=== PATIENT | male | born 1990 | race Two or more races ===

== ENCOUNTER 2019-01-16 10:49 | Inpatient (IN) | payer MEDICAID ==
[~2019-01-16] VITALS: Ht 170.2 cm; Wt 53.8 kg
[2019-01-16] VITALS (12 sets, daily range): BP systolic 87–167; BP diastolic 31–87
[2019-01-16] MEDS ORDERED: NOVOLIN R100 UNIT/1 SUBQ (10:53)
--- NOTE | 2019-01-16 10:55 | NUR ---
ED Nurse Note: PT BROUGHT IN BY R29 FROM HOME. AOX4. PT C/O WEAKNESS X THIS AM. PT HAS HX OF IDDM. B, DR GUERRERO NOTIFIED. PT STATES HE TOOK HIS INSULIN LAST NIGHT BUT NOT THIS MORNING. PT STATES HE HAD NAUSEA AND MULTIPLE OF VOMITING X THIS AM. PT STILL C/O NAUSEA AT THIS TIME BUT NO ACTIVE VOMITING. PT INDEPENDENTLY AMBULATED TO RESTROOM WITH STEADY GAIT. PT PRESENTS WITH 18G IV TO LEFT AC INSERTED BY R29.
[2019-01-16 11:32] LABS: BASOPHILS % (AUTO) 0.6 % (0.0-2.0); HEMATOCRIT 43.4 % (42.0-52.0); HEMOGLOBIN 14.2 G/DL (14.2-18.0); LYMPHOCYTES % (AUTO) 14.2 % (20.0-45.0); MEAN CORPUSCULAR VOLUME 93 FL (80-99); MONOCYTES % (AUTO) 3.6 % (1.0-10.0); NEUTROPHILS % (AUTO) 81.5 % (45.0-75.0); PLATELET COUNT 217 K/UL (150-450); RED CELL DISTRIBUTION WIDTH 11.9 % (11.6-14.8); WHITE BLOOD COUNT 9.7 K/UL (4.8-10.8)
[2019-01-16 11:38] LABS: APPEARANCE,URINE CLEAR; BILIRUBIN, URINE NEGATIVE (NEGATIVE); COLOR,URINE PALE YELLOW; GLUCOSE, URINE (UA) 4+ (NEGATIVE); KETONES,URINE 4+ (NEGATIVE); LEUKOCYTE ESTERASE ,URINE NEGATIVE (NEGATIVE); NITRITE,URINE NEGATIVE (NEGATIVE); PH,URINE 6 (4.5-8.0); PROTEIN,URINE 1+ (NEGATIVE); UROBILINOGEN,URINE NORMAL MG/DL (0.0-1.0)
[2019-01-16 11:44] LABS: ALANINE AMINOTRANSFERASE 33 U/L (12-78); ALBUMIN 3.9 G/DL (3.4-5.0); ALBUMIN/GLOBULIN RATIO 1.1 (1.0-2.7); ALKALINE PHOSPHATASE 92 U/L (46-116); ANION GAP 28 mmol/L (5-15); ASPARTATE AMINO TRANSFERASE 21 U/L (15-37); BILIRUBIN,TOTAL 0.9 MG/DL (0.2-1.0); BLOOD UREA NITROGEN 19 mg/dL (7-18); CARBON DIOXIDE 11 MMOL/L (21-32); CHLORIDE 99 MMOL/L (98-107); CREATININE 1.3 MG/DL (0.55-1.30); POTASSIUM 4.8 MMOL/L (3.5-5.1); SODIUM 138 MMOL/L (136-145)
--- NOTE | 2019-01-16 12:56 | NUR ---
ED Nurse Note: PHARMACY CALLED FOR INSULIN DRIP. PHARMACY STILL WORKING ON IT. WILL DELIVER WHEN READY.
--- NOTE | 2019-01-16 14:54 | Emergency Room Report ---
History of Present Illness General Chief Complaint: Nausea Source: Patient, EMS Present Illness HPI This patient complains of one day of nausea, vomiting and abdominal pain. He has a history of diabetes. Denies recent illness. Denies fever or chills. He states that he has been using his insulin. He has no other complaints. Allergies: Coded Allergies: No Known Allergies (Unverified , 01/16/19) Patient History Past Medical History: see triage record, DM, HTN Social History: Denies: smoking, alcohol use, drug use Reviewed Nursing Documentation: PMH: Agreed; PSxH: Agreed Nursing Documentation-PMH Past Medical History: No History, Except For Hx Cardiac Problems: Yes - high cholesterol Hx Hypertension: Yes Hx Diabetes: Yes Review of Systems All Other Systems: negative except mentioned in HPI Physical Exam Vital Signs Date Time Temp Pulse Resp B/P (MAP) Pulse Ox O2 Delivery O2 Flow Rate FiO2 01/16/19 10:44 98.1 124 22 141/87 (105) 99 Room Air Sp02 EP Interpretation: reviewed, normal General Appearance: no apparent distress, alert, GCS 15, non-toxic Head: normocephalic, atraumatic Eyes: bilateral eye normal inspection, bilateral eye PERRL ENT: hearing grossly normal, normal pharynx, no angioedema, normal voice Neck: full range of motion, supple/symm/no masses Respiratory: chest non-tender, lungs clear, normal breath sounds, no respiratory distress, no retraction, no accessory muscle use, speaking full sentences Cardiovascular #1: no edema, tachycardia Gastrointestinal: normal bowel sounds, soft, non-distended, no guarding, no rebound, tenderness - Diffusely TTP Rectal: deferred Musculoskeletal: back normal, gait/station normal, normal range of motion, non- tender Neurologic: alert, oriented x3, responsive, motor strength/tone normal, sensory intact, speech normal Psychiatric: judgement/insight normal, memory normal, mood/affect normal, no suicidal/homicidal ideation Skin: normal color, no rash, warm/dry, well hydrated Medical Decision Making Diagnostic Impression: Primary Impression: DKA (diabetic ketoacidoses) ER Course This patient presents with DKA. He was given aggressive IV fluid resuscitation and started on an insulin drip. He was given nausea control. I did not identify an infectious etiology. I suspect medication and diet noncompliance. The patient is admitted to the ICU. This patient is critically ill. This patient required complex medical decision- making, aggressive intervention, extensive laboratory workup and monitoring. Critical care time: 40 minutes. Laboratory Tests Test 01/16/19 11:07 White Blood Count 9.7 K/UL (4.8-10.8) Red Blood Count 4.70 M/UL (4.70-6.10) Hemoglobin 14.2 G/DL (14.2-18.0) Hematocrit 43.4 % (42.0-52.0) Mean Corpuscular Volume 93 FL (80-99) Mean Corpuscular Hemoglobin 30.3 PG (27.0-31.0) Mean Corpuscular Hemoglobin Concent 32.7 G/DL (32.0-36.0) Red Cell Distribution Width 11.9 % (11.6-14.8) Platelet Count 217 K/UL (150-450) Mean Platelet Volume 9.6 FL (6.5-10.1) Neutrophils (%) (Auto) 81.5 % (45.0-75.0) H Lymphocytes (%) (Auto) 14.2 % (20.0-45.0) L Monocytes (%) (Auto) 3.6 % (1.0-10.0) Eosinophils (%) (Auto) 0.0 % (0.0-3.0) Basophils (%) (Auto) 0.6 % (0.0-2.0) Urine Color Pale yellow Urine Appearance Clear Urine pH 6 (4.5-8.0) Urine Specific [place] 1.020 (1.005-1.035) Urine Protein 1+ (NEGATIVE) H Urine Glucose (UA) 4+ (NEGATIVE) H Urine Ketones 4+ (NEGATIVE) H Urine Blood 2+ (NEGATIVE) H Urine Nitrite Negative (NEGATIVE) Urine Bilirubin Negative (NEGATIVE) Urine Urobilinogen Normal MG/DL (0.0-1.0) Urine Leukocyte Esterase Negative (NEGATIVE) Urine RBC 0-2 /HPF (0 - 0) H Urine WBC 0-2 /HPF (0 - 0) Urine Squamous Epithelial Cells Occasional /LPF Urine Bacteria Occasional /HPF (NONE) Sodium Level 138 MMOL/L (136-145) Potassium Level 4.8 MMOL/L (3.5-5.1) Chloride Level 99 MMOL/L (98-107) Carbon Dioxide Level 11 MMOL/L (21-32) L Anion Gap 28 mmol/L (5-15) H Blood Urea Nitrogen 19 mg/dL (7-18) H Creatinine 1.3 MG/DL (0.55-1.30) Estimate Glomerular Filtration Rate > 60 mL/min (>60) Glucose Level 555 MG/DL (74-106) *H Calcium Level 9.0 MG/DL (8.5-10.1) Magnesium Level 1.8 MG/DL (1.8-2.4) Total Bilirubin 0.9 MG/DL (0.2-1.0) Aspartate Amino Transferase (AST) 21 U/L (15-37) Alanine Aminotransferase (ALT) 33 U/L (12-78) Alkaline Phosphatase 92 U/L (46-116) Total Protein 7.4 G/DL (6.4-8.2) Albumin 3.9 G/DL (3.4-5.0) Globulin 3.5 g/dL Albumin/Globulin Ratio 1.1 (1.0-2.7) Acetone Level Positive-moderate (NEGATIVE) EKG Diagnostic Results Rate: tachycardiac Rhythm: other - S.tachycardia ST Segments: no acute changes Rhythm Strip Diag. Results EP Interpretation: yes Rate: 120's Rhythm: no PVC's, no ectopy, other - S.tachycardia Last Vital Signs Date Time Temp Pulse Resp B/P (MAP) Pulse Ox O2 Delivery O2 Flow Rate FiO2 01/16/19 13:51 124 11 151/58 100 Room Air 01/16/19 12:50 98.0 Disposition: ADMITTED INPATIENT Condition: Critical Referrals: [facility],REFERRING (PCP) Kerline Young DO Jan 16, 2019 14:54
--- NOTE | 2019-01-16 16:30 | NUR ---
Note malia in EDM - 01/16/19 at 1649 by CAROLYN ED Nurse Note: DR. CAZARES NOTIFIED OF LAST BG OF 254. PER DR CAZARES, STOP INSULIN DRIP UNTIL FURTHER NOTICE.
--- NOTE | 2019-01-16 16:40 | NUR ---
ED Nurse Note: ICU CALLED FOR PT TRANSFER. REPORT GIVEN TO VIET GOMES. PER VIET GOMES, ROOM IS STILL NOT READY. RN WILL CALL BACK ONCE ROOM IS READY FOR PT.
--- NOTE | 2019-01-16 16:45 | NUR ---
ED Nurse Note: PER DR CAZARES, STOP INSULIN DRIP UNTIL FURTHER NOTICE.
--- NOTE | 2019-01-16 17:30 | NUR ---
ED Nurse Note: ICU CALLED BACK STATING BED IS NOW AVAILABLE. PT TAKEN UP TO ICU VIA GURNEY ON HOUSEKEEPING/LAUNDRY WITH ALL BELONGINGS ACCOMPANIED BY PRIMARY RN AND EMT. VSS.
[2019-01-16] MEDS ORDERED: Insulin Human Regular 100units/ml 3ml IV PRN ×2 (18:00)
[2019-01-16] MEDS ORDERED: DiphenhydrAMINE 50mg/ml Inj IVP PRN (18:15)
--- NOTE | 2019-01-16 18:30 | NUR ---
NURSE NOTES: Report received from Toni LLANOS. Pt alert and oriented x4, able to make needs known. Pt connected to hydrocrane operator, St 100s. Pt on RA 100% oxygen saturation, denies SOB. Pt voiding per urinal. Initial accucheck was 185. Safety measures in place with bed locked in lowest position, side rails x3 up and bed alarm on. Will continue to monitor and continue plan of care.
[2019-01-16] MEDS: Hydromorphone 0.5mg/0.5ml inj IVP PRN (18:40)
--- NOTE | 2019-01-16 19:46 | NUR ---
HAND-OFF: Report given to Maria Elena LLANOS.
[2019-01-16 20:22] LABS: ANION GAP 22 mmol/L (5-15); BLOOD UREA NITROGEN 15 mg/dL (7-18); CALCIUM 7.6 MG/DL (8.5-10.1); CARBON DIOXIDE 12 MMOL/L (21-32); CHLORIDE 110 MMOL/L (98-107); CREATININE 1.3 MG/DL (0.55-1.30); POTASSIUM 4.1 MMOL/L (3.5-5.1); SODIUM 143 MMOL/L (136-145)
[2019-01-16 20:26] LABS: PHOSPHORUS 3.5 MG/DL (2.5-4.9)
--- NOTE | 2019-01-16 20:27 | Pulmonolgy Critical Care Note ---
Critical Care - Asmt/Plan Assessment/Plan: Pulmonary CCM Note HPI Patient is a 28 year old man with history of IDDM, HL and HTN admitted after complaining of one day of nausea, vomiting and abdominal pain. Denies recent illness. Denies fever or chills. No cough. He states that he has been using his insulin. He has no other complaints. Allergies: No Known Allergies Past Medical History: IDDM, HTN, HL Social History: Denies: smoking, alcohol use, drug use All Other Systems: negative except mentioned in HPI Physical Exam Vital Signs Noted Date Time Temp Pulse Resp B/P (MAP) Pulse Ox O2 Delivery O2 Flow Rate FiO2 01/16/19 10:44 98.1 124 22 141/87 (105) 99 Room Air General Appearance: no apparent distress, alert, GCS 15, non-toxic, dryish mm, smells of ketones Head: normocephalic, atraumatic Eyes: bilateral eye normal inspection, bilateral eye PERRL ENT: hearing grossly normal, normal pharynx, no angioedema, normal voice Neck: full range of motion, supple/symm/no masses Respiratory: chest non-tender, lungs clear, normal breath sounds, no respiratory distress, no retraction, no accessory muscle use, speaking full sentences Cardiovascular: HS1, HS2 normal, RRR, no edema, tachycardia Gastrointestinal: normal bowel sounds, soft, non-distended, no guarding, no rebound, tenderness - mild tenderness Rectal: deferred Musculoskeletal: back normal, gait/station normal, normal range of motion, non- tender Neurologic: alert, oriented x3, responsive, motor strength/tone normal, sensory intact, speech normal Skin: normal color, no rash, warm/dry, well hydrated Impression: Primary Impression: Diabetic ketoacidoses, h/o IDDM Hypertension Hyperlipidemia Plan IV Fluids Insulin gtt PPX Monitor labs Supplement electrolytes PRN CXR PRN O2 Protonix Lipase Laboratory Tests Test 01/16/19 11:07 White Blood Count 9.7 K/UL (4.8-10.8) Red Blood Count 4.70 M/UL (4.70-6.10) Hemoglobin 14.2 G/DL (14.2-18.0) Hematocrit 43.4 % (42.0-52.0) Mean Corpuscular Volume 93 FL (80-99) Mean Corpuscular Hemoglobin 30.3 PG (27.0-31.0) Mean Corpuscular Hemoglobin Concent 32.7 G/DL (32.0-36.0) Red Cell Distribution Width 11.9 % (11.6-14.8) Platelet Count 217 K/UL (150-450) Mean Platelet Volume 9.6 FL (6.5-10.1) Neutrophils (%) (Auto) 81.5 % (45.0-75.0) H Lymphocytes (%) (Auto) 14.2 % (20.0-45.0) L Monocytes (%) (Auto) 3.6 % (1.0-10.0) Eosinophils (%) (Auto) 0.0 % (0.0-3.0) Basophils (%) (Auto) 0.6 % (0.0-2.0) Urine Color Pale yellow Urine Appearance Clear Urine pH 6 (4.5-8.0) Urine Specific [place] 1.020 (1.005-1.035) Urine Protein 1+ (NEGATIVE) H Urine Glucose (UA) 4+ (NEGATIVE) H Urine Ketones 4+ (NEGATIVE) H Urine Blood 2+ (NEGATIVE) H Urine Nitrite Negative (NEGATIVE) Urine Bilirubin Negative (NEGATIVE) Urine Urobilinogen Normal MG/DL (0.0-1.0) Urine Leukocyte Esterase Negative (NEGATIVE) Urine RBC 0-2 /HPF (0 - 0) H Urine WBC 0-2 /HPF (0 - 0) Urine Squamous Epithelial Cells Occasional /LPF Urine Bacteria Occasional /HPF (NONE) Sodium Level 138 MMOL/L (136-145) Potassium Level 4.8 MMOL/L (3.5-5.1) Chloride Level 99 MMOL/L (98-107) Carbon Dioxide Level 11 MMOL/L (21-32) L Anion Gap 28 mmol/L (5-15) H Blood Urea Nitrogen 19 mg/dL (7-18) H Creatinine 1.3 MG/DL (0.55-1.30) Estimate Glomerular Filtration Rate > 60 mL/min (>60) Glucose Level 555 MG/DL (74-106) *H Calcium Level 9.0 MG/DL (8.5-10.1) Magnesium Level 1.8 MG/DL (1.8-2.4) Total Bilirubin 0.9 MG/DL (0.2-1.0) Aspartate Amino Transferase (AST) 21 U/L (15-37) Alanine Aminotransferase (ALT) 33 U/L (12-78) Alkaline Phosphatase 92 U/L (46-116) Total Protein 7.4 G/DL (6.4-8.2) Albumin 3.9 G/DL (3.4-5.0) Globulin 3.5 g/dL Albumin/Globulin Ratio 1.1 (1.0-2.7) Acetone Level Positive-moderate (NEGATIVE) EKG: Rate: tachycardiac Rhythm: other - S.tachycardia ST Segments: no acute changes Renal: increase IV fluid Endocrine: monitor blood sugar Prophylaxis: Protonix, Heparin Disposition: keep in ICU Time Spent (Minutes): 50 Critical Care - Objective Last 24 Hour Vital Signs Date Time Temp Pulse Resp B/P (MAP) Pulse Ox O2 Delivery O2 Flow Rate FiO2 01/16/19 19:00 106 16 96/37 (56) 98 01/16/19 18:02 Room Air 01/16/19 18:02 97.7 01/16/19 18:00 97.7 115 16 146/70 (95) 100 01/16/19 17:31 98.2 113 16 145/65 100 Room Air 01/16/19 15:47 122 15 167/87 100 Room Air 01/16/19 13:51 124 11 151/58 100 Room Air 01/16/19 12:50 98.0 122 15 121/58 100 Room Air 01/16/19 12:49 122 15 Room Air 01/16/19 11:13 97.9 108 19 137/66 100 Room Air 01/16/19 10:44 98.1 124 22 141/87 (105) 99 Room Air Accucheck: 208 Critical Care - Subjective ROS Limited/Unobtainable: No Condition: critical, improving Sputum Amount: None Silverio Bhatt MD Jan 16, 2019 20:27
--- NOTE | 2019-01-16 20:29 | NUR ---
CASE MANAGEMENT: INITIAL REVIEW 01/16/2019 28 YO M TINAA FROM HOME CC: GEN WEAKNESS. N/V. ABD PAIN. PMHx: HLD. HTN. DM. SI:DKA. T 98.1 HR 124 RR 22 B/P 141/87 SATS 99% ON RA CO2 11 BUN 19 GLU 555 ACETONE (POS-MOD) IS: NS BOLUS X2 ZOFRAN IV X1 100 UNITS OF INSULIN HUMAN REGULAR PATIENT ADMITTED TO ICU 01/16/2019 @ 1453 DCP: PATIENT TO BE DISCHARGED TO HOME ONCE MEDICALLY CLEARED. PLAN OF CARE: IVF GLYCEMIC CONTROL AND MONITORING
[2019-01-16] MEDS: Insulin Rate Change 1 Each MISC PRN ×4 (20:33→23:29)
[2019-01-16] MEDS: Heparin 5000 units/ml inj SUBQ SCH (21:13)
[2019-01-16] MEDS: D5NS 1,000 ML IV SCH (23:45)
[2019-01-17] VITALS (22 sets, daily range): BP systolic 113–179; BP diastolic 46–99
--- NOTE | 2019-01-17 | NUR ---
NURSE NOTES: LEANA IN WITH ORDER MADE IV CHANGE TO D5/NS AT 150 PT C/O N/V AND PAIN MEDICATED ORDER
[2019-01-17] MEDS: Sodium Chloride 550 ML IV SCH ×2 (00:15→01:57)
[2019-01-17] MEDS: Insulin Rate Change 1 Each MISC PRN ×8 (00:26→15:27)
[2019-01-17 00:40] LABS: ANION GAP 16 mmol/L (5-15); BLOOD UREA NITROGEN 15 mg/dL (7-18); CALCIUM 8.1 MG/DL (8.5-10.1); CARBON DIOXIDE 16 MMOL/L (21-32); CHLORIDE 114 MMOL/L (98-107); CREATININE 1.3 MG/DL (0.55-1.30); POTASSIUM 3.8 MMOL/L (3.5-5.1); SODIUM 146 MMOL/L (136-145)
[2019-01-17] MEDS: Hydromorphone 0.5mg/0.5ml inj IVP PRN ×5 (00:44→21:02)
[2019-01-17 01:12] LABS: PHOSPHORUS 2.7 MG/DL (2.5-4.9)
--- NOTE | 2019-01-17 02:00 | NUR ---
NURSE NOTES: complete bed bath oral care and back care
--- NOTE | 2019-01-17 02:00 | NUR ---
NURSE NOTES: BS 190 INSULIN DRIP CHANGE TO ALG 3 AT 5.8 UNIT /HR
[2019-01-17] MEDS ORDERED: Insulin Human Regular 100units/ml 3ml IV PRN ×2 (02:45)
--- NOTE | 2019-01-17 03:46 | NUR ---
NURSE NOTES: [facility] called x2 for a new label for insulin drip, algorithm 3.it took an hour to have the label printed out and obtained from the nursing supervisor pipe finishing, when scanned, it says"dose exceeded"because it is "ml/hr" instead of "u/hr", called [facility] again by Alcira Barbour but the pharmacist (Kristian) said she'll find somebody who knows how to change it.
--- NOTE | 2019-01-17 04:03 | NUR ---
NURSE NOTES: estevan(pharmacist) from [facility] called and said that she's able to change the insulin drip to units/hr and will be printing out another new label
[2019-01-17] MEDS: D5NS 1,000 ML IV SCH ×2 (06:15→13:06)
[2019-01-17 06:41] LABS: ANION GAP 14 mmol/L (5-15); BLOOD UREA NITROGEN 12 mg/dL (7-18); CALCIUM 8.3 MG/DL (8.5-10.1); CARBON DIOXIDE 18 MMOL/L (21-32); CHLORIDE 113 MMOL/L (98-107); CREATININE 1.2 MG/DL (0.55-1.30); POTASSIUM 3.5 MMOL/L (3.5-5.1); SODIUM 145 MMOL/L (136-145)
[2019-01-17 07:33] LABS: CHOLESTEROL 165 MG/DL (< 200); HDL CHOLESTEROL 29 MG/DL (40-60); TRIGLYCERIDES 118 MG/DL (30-150)
--- NOTE | 2019-01-17 08:49 | NUR ---
NURSE NOTES: Received report from VIET Arredondo. Patient asleep. No acute distress/SOB noted. On room air. Patient denies any pain/discomfort at this time. Insulin drip running 2unit/hr via right FA 18G. D5NS 150ml/hr running via left AC 18G. Skin intact and clean. Started fall precaution. Call light place in easy reach. Will continue plan fo care. Addendum: 01/17/19 at 0920 by REMI RUSSELL RN Entry Time 0710
[2019-01-17] MEDS: Heparin 5000 units/ml inj SUBQ SCH ×2 (09:11→21:05)
--- NOTE | 2019-01-17 09:19 | Cardiology Progress Note ---
Assessment/Plan Assessment/Plan The patient is seen and examined, full consult note will be dictated. Objective Last 24 Hour Vital Signs Date Time Temp Pulse Resp B/P (MAP) Pulse Ox O2 Delivery O2 Flow Rate FiO2 01/17/19 07:00 90 12 113/68 (83) 98 01/17/19 06:00 90 12 113/68 (83) 98 01/17/19 05:00 90 12 113/68 (83) 98 01/17/19 04:00 98.0 95 16 113/55 (74) 98 01/17/19 04:00 Room Air 01/17/19 04:00 95 01/17/19 03:00 100 14 150/63 (92) 100 01/17/19 02:00 109 14 114/46 (68) 01/17/19 01:00 106 12 129/64 (85) 100 01/17/19 00:14 165/56 01/17/19 00:00 108 19 127/66 (86) 100 01/17/19 00:00 100 01/17/19 00:00 Room Air 01/16/19 23:00 96 12 121/71 (88) 100 01/16/19 22:00 93 12 114/68 (83) 100 01/16/19 21:00 96 11 119/64 (82) 100 01/16/19 20:00 97.8 107 12 98/39 (58) 98 01/16/19 20:00 Room Air 01/16/19 20:00 107 01/16/19 19:30 103 13 87/31 (49) 99 01/16/19 19:00 106 16 96/37 (56) 98 01/16/19 19:00 106 16 96/37 (56) 98 01/16/19 18:30 116 18 136/69 (91) 100 01/16/19 18:02 Room Air 01/16/19 18:02 97.7 01/16/19 18:00 97.7 115 16 146/70 (95) 100 01/16/19 18:00 112 13 146/70 (95) 100 01/16/19 17:31 98.2 113 16 145/65 100 Room Air 01/16/19 15:47 122 15 167/87 100 Room Air 01/16/19 13:51 124 11 151/58 100 Room Air 01/16/19 12:50 98.0 122 15 121/58 100 Room Air 01/16/19 12:49 122 15 Room Air 01/16/19 11:13 97.9 108 19 137/66 100 Room Air 01/16/19 10:44 98.1 124 22 141/87 (105) 99 Room Air Intake and Output 01/16/19 01/17/19 18:59 06:59 Intake Total 5008.89 ml 2184.1 ml Output Total 1900 ml Balance 5008.89 ml 284.1 ml Intake Oral 50 ml IV Total 5008.89 ml 2134.1 ml Output Urine Total 1900 ml # Voids 1 Laboratory Tests Test 01/16/19 11:07 01/16/19 19:35 01/16/19 23:50 01/17/19 00:00 White Blood Count 9.7 K/UL (4.8-10.8) Red Blood Count 4.70 M/UL (4.70-6.10) Hemoglobin 14.2 G/DL (14.2-18.0) Hematocrit 43.4 % (42.0-52.0) Mean Corpuscular Volume 93 FL (80-99) Mean Corpuscular Hemoglobin 30.3 PG (27.0-31.0) Mean Corpuscular Hemoglobin Concent 32.7 G/DL (32.0-36.0) Red Cell Distribution Width 11.9 % (11.6-14.8) Platelet Count 217 K/UL (150-450) Mean Platelet Volume 9.6 FL (6.5-10.1) Neutrophils (%) (Auto) 81.5 % (45.0-75.0) H Lymphocytes (%) (Auto) 14.2 % (20.0-45.0) L Monocytes (%) (Auto) 3.6 % (1.0-10.0) Eosinophils (%) (Auto) 0.0 % (0.0-3.0) Basophils (%) (Auto) 0.6 % (0.0-2.0) Urine Color Pale yellow Urine Appearance Clear Urine pH 6 (4.5-8.0) Urine Specific [place] 1.020 (1.005-1.035) Urine Protein 1+ (NEGATIVE) H Urine Glucose (UA) 4+ (NEGATIVE) H Urine Ketones 4+ (NEGATIVE) H Urine Blood 2+ (NEGATIVE) H Urine Nitrite Negative (NEGATIVE) Urine Bilirubin Negative (NEGATIVE) Urine Urobilinogen Normal MG/DL (0.0-1.0) Urine Leukocyte Esterase Negative (NEGATIVE) Urine RBC 0-2 /HPF (0 - 0) H Urine WBC 0-2 /HPF (0 - 0) Urine Squamous Epithelial Cells Occasional /LPF Urine Bacteria Occasional /HPF (NONE) Sodium Level 138 MMOL/L (136-145) 143 MMOL/L (136-145) 146 MMOL/L (136-145) H Potassium Level 4.8 MMOL/L (3.5-5.1) 4.1 MMOL/L (3.5-5.1) 3.8 MMOL/L (3.5-5.1) Chloride Level 99 MMOL/L (98-107) 110 MMOL/L (98-107) H 114 MMOL/L (98-107) H Carbon Dioxide Level 11 MMOL/L (21-32) L 12 MMOL/L (21-32) L 16 MMOL/L (21-32) L Anion Gap 28 mmol/L (5-15) H 22 mmol/L (5-15) H 16 mmol/L (5-15) H Blood Urea Nitrogen 19 mg/dL (7-18) H 15 mg/dL (7-18) 15 mg/dL (7-18) Creatinine 1.3 MG/DL (0.55-1.30) 1.3 MG/DL (0.55-1.30) 1.3 MG/DL (0.55-1.30) Estimat Glomerular Filtration Rate > 60 mL/min (>60) > 60 mL/min (>60) > 60 mL/min (>60) Glucose Level 555 MG/DL (74-106) *H 260 MG/DL (74-106) #H 129 MG/DL (74-106) #H Calcium Level 9.0 MG/DL (8.5-10.1) 7.6 MG/DL (8.5-10.1) L 8.1 MG/DL (8.5-10.1) L Magnesium Level 1.8 MG/DL (1.8-2.4) 1.6 MG/DL (1.8-2.4) L 1.8 MG/DL (1.8-2.4) Total Bilirubin 0.9 MG/DL (0.2-1.0) Aspartate Amino Transf (AST/SGOT) 21 U/L (15-37) Alanine Aminotransferase (ALT/SGPT) 33 U/L (12-78) Alkaline Phosphatase 92 U/L (46-116) Total Protein 7.4 G/DL (6.4-8.2) Albumin 3.9 G/DL (3.4-5.0) Globulin 3.5 g/dL Albumin/Globulin Ratio 1.1 (1.0-2.7) Acetone Level Positive-moderate (NEGATIVE) Phosphorus Level 3.5 MG/DL (2.5-4.9) 2.7 MG/DL (2.5-4.9) Lipase 70 U/L (73-393) L Test 01/17/19 06:00 Sodium Level 145 MMOL/L (136-145) Potassium Level 3.5 MMOL/L (3.5-5.1) Chloride Level 113 MMOL/L (98-107) H Carbon Dioxide Level 18 MMOL/L (21-32) L Anion Gap 14 mmol/L (5-15) Blood Urea Nitrogen 12 mg/dL (7-18) Creatinine 1.2 MG/DL (0.55-1.30) Estimat Glomerular Filtration Rate > 60 mL/min (>60) Glucose Level 153 MG/DL (74-106) H Calcium Level 8.3 MG/DL (8.5-10.1) L Phosphorus Level 2.0 MG/DL (2.5-4.9) L Magnesium Level 2.0 MG/DL (1.8-2.4) Triglycerides Level 118 MG/DL (30-150) Cholesterol Level 165 MG/DL (< 200) LDL Cholesterol 118 mg/dL (<100) H HDL Cholesterol 29 MG/DL (40-60) L Cholesterol/HDL Ratio 5.7 (3.3-4.4) H Drew Medel MD Jan 17, 2019 09:19
--- NOTE | 2019-01-17 09:23 | NUR ---
RADIOLOGY DEPT., CHEST X-RAY.-P.DYE
--- NOTE | 2019-01-17 10:00 | NUR ---
Social Service Note SW met with patient to assess patient's needs. Patient is alert, oriented and verbally responsive. Patient states Tuesday he came down with flu like symptoms. Over the course of several days patient states he wasn't taking his diabetic medications and checking his blood sugar as scheduled. Patient states he just wanted to sleep. Patient states then be began vomiting and cramping so his family called 911. Patient states he doesn't follow up with PCP on a regular basis however has medications and testing supplies at home. [facility] [address] [place] [address]. [id number], . Patient provided his emergency contact, sister Audrey Vergara [phone]. Family will provide transportation home upon discharge. Will monitor and be available as needed.
--- NOTE | 2019-01-17 11:36 | NUR ---
NURSE NOTES: PRN Dilaudid 0.5mg IVP given for abdominal pain. Sister at bedside. Pt is still on Insulin drip. Will continue to monitor.
--- NOTE | 2019-01-17 11:54 | Pulmonolgy Critical Care Note ---
Critical Care - Asmt/Plan Assessment/Plan: Pulmonary CCM Note HPI Patient is a 28 year old man with history of IDDM, HL and HTN admitted after complaining of one day of nausea, vomiting and abdominal pain. Denies recent illness. Denies fever or chills. No cough. He states that he has been using his insulin. He has no other complaints. Gap closed Allergies: No Known Allergies Past Medical History: IDDM, HTN, HL Social History: Denies: smoking, alcohol use, drug use All Other Systems: negative except mentioned in HPI Physical Exam Vital Signs Noted. General Appearance: no apparent distress, alert, GCS 15, non-toxic Head: normocephalic, atraumatic Eyes: bilateral eye normal inspection, bilateral eye PERRL ENT: hearing grossly normal, normal pharynx, no angioedema, normal voice Neck: full range of motion, supple/symm/no masses Respiratory: chest non-tender, lungs clear, normal breath sounds, no respiratory distress, no retraction, no accessory muscle use, speaking full sentences Cardiovascular: HS1, HS2 normal, RRR, no edema, tachycardia Gastrointestinal: normal bowel sounds, soft, non-distended, no guarding, no rebound, tenderness - mild tenderness Rectal: deferred Musculoskeletal: back normal, gait/station normal, normal range of motion, non- tender Neurologic: alert, oriented x3, responsive, motor strength/tone normal, sensory intact, speech normal Skin: normal color, no rash, warm/dry, well hydrated Impression: Primary Impression: Diabetic ketoacidoses, h/o IDDM Hypertension Hyperlipidemia Plan IV Fluids Insulin gtt - to Levamir PPX Monitor labs Supplement electrolytes PRN CXR PRN O2 Protonix Lipase Laboratory Tests Test 01/16/19 11:07 White Blood Count 9.7 K/UL (4.8-10.8) Red Blood Count 4.70 M/UL (4.70-6.10) Hemoglobin 14.2 G/DL (14.2-18.0) Hematocrit 43.4 % (42.0-52.0) Mean Corpuscular Volume 93 FL (80-99) Mean Corpuscular Hemoglobin 30.3 PG (27.0-31.0) Mean Corpuscular Hemoglobin Concent 32.7 G/DL (32.0-36.0) Red Cell Distribution Width 11.9 % (11.6-14.8) Platelet Count 217 K/UL (150-450) Mean Platelet Volume 9.6 FL (6.5-10.1) Neutrophils (%) (Auto) 81.5 % (45.0-75.0) H Lymphocytes (%) (Auto) 14.2 % (20.0-45.0) L Monocytes (%) (Auto) 3.6 % (1.0-10.0) Eosinophils (%) (Auto) 0.0 % (0.0-3.0) Basophils (%) (Auto) 0.6 % (0.0-2.0) Urine Color Pale yellow Urine Appearance Clear Urine pH 6 (4.5-8.0) Urine Specific [place] 1.020 (1.005-1.035) Urine Protein 1+ (NEGATIVE) H Urine Glucose (UA) 4+ (NEGATIVE) H Urine Ketones 4+ (NEGATIVE) H Urine Blood 2+ (NEGATIVE) H Urine Nitrite Negative (NEGATIVE) Urine Bilirubin Negative (NEGATIVE) Urine Urobilinogen Normal MG/DL (0.0-1.0) Urine Leukocyte Esterase Negative (NEGATIVE) Urine RBC 0-2 /HPF (0 - 0) H Urine WBC 0-2 /HPF (0 - 0) Urine Squamous Epithelial Cells Occasional /LPF Urine Bacteria Occasional /HPF (NONE) Sodium Level 138 MMOL/L (136-145) Potassium Level 4.8 MMOL/L (3.5-5.1) Chloride Level 99 MMOL/L (98-107) Carbon Dioxide Level 11 MMOL/L (21-32) L Anion Gap 28 mmol/L (5-15) H Blood Urea Nitrogen 19 mg/dL (7-18) H Creatinine 1.3 MG/DL (0.55-1.30) Estimate Glomerular Filtration Rate > 60 mL/min (>60) Glucose Level 555 MG/DL (74-106) *H Calcium Level 9.0 MG/DL (8.5-10.1) Magnesium Level 1.8 MG/DL (1.8-2.4) Total Bilirubin 0.9 MG/DL (0.2-1.0) Aspartate Amino Transferase (AST) 21 U/L (15-37) Alanine Aminotransferase (ALT) 33 U/L (12-78) Alkaline Phosphatase 92 U/L (46-116) Total Protein 7.4 G/DL (6.4-8.2) Albumin 3.9 G/DL (3.4-5.0) Globulin 3.5 g/dL Albumin/Globulin Ratio 1.1 (1.0-2.7) Acetone Level Positive-moderate (NEGATIVE) EKG: Rate: tachycardiac Rhythm: other - S.tachycardia ST Segments: no acute changes Critical Care - Objective Last 24 Hour Vital Signs Date Time Temp Pulse Resp B/P (MAP) Pulse Ox O2 Delivery O2 Flow Rate FiO2 01/17/19 11:00 92 11 141/81 (101) 100 01/17/19 10:00 90 11 127/78 (94) 100 01/17/19 09:00 89 9 128/74 (92) 99 01/17/19 08:00 97.9 91 9 136/74 (94) 100 01/17/19 08:00 Room Air 01/17/19 07:00 90 12 113/68 (83) 98 01/17/19 06:00 90 12 113/68 (83) 98 01/17/19 05:00 90 12 113/68 (83) 98 01/17/19 04:00 98.0 95 16 113/55 (74) 98 01/17/19 04:00 Room Air 01/17/19 04:00 95 01/17/19 03:00 100 14 150/63 (92) 100 01/17/19 02:00 109 14 114/46 (68) 01/17/19 01:00 106 12 129/64 (85) 100 01/17/19 00:14 165/56 01/17/19 00:00 108 19 127/66 (86) 100 01/17/19 00:00 100 01/17/19 00:00 Room Air 01/16/19 23:00 96 12 121/71 (88) 100 01/16/19 22:00 93 12 114/68 (83) 100 01/16/19 21:00 96 11 119/64 (82) 100 01/16/19 20:00 97.8 107 12 98/39 (58) 98 01/16/19 20:00 Room Air 01/16/19 20:00 107 01/16/19 19:30 103 13 87/31 (49) 99 01/16/19 19:00 106 16 96/37 (56) 98 01/16/19 19:00 106 16 96/37 (56) 98 01/16/19 18:30 116 18 136/69 (91) 100 01/16/19 18:02 Room Air 01/16/19 18:02 97.7 01/16/19 18:00 97.7 115 16 146/70 (95) 100 01/16/19 18:00 112 13 146/70 (95) 100 01/16/19 17:31 98.2 113 16 145/65 100 Room Air 01/16/19 15:47 122 15 167/87 100 Room Air 01/16/19 13:51 124 11 151/58 100 Room Air 01/16/19 12:50 98.0 122 15 121/58 100 Room Air 01/16/19 12:49 122 15 Room Air Accucheck: 102 Critical Care - Subjective ROS Limited/Unobtainable: No Sputum Amount: None I&O: Intake and Output 01/16/19 01/17/19 19:00 07:00 Intake Total 5008.89 ml 2184.1 ml Output Total 600 ml 1300 ml Balance 4408.89 ml 884.1 ml Intake Oral 50 ml IV Total 5008.89 ml 2134.1 ml Output Urine Total 600 ml 1300 ml # Voids 1 Silverio Bhatt MD Jan 17, 2019 11:54
--- NOTE | 2019-01-17 11:55 | NUR ---
[facility] [employer] AIDE SI:DKA . HYPERNATREMIA VS: BP 141/81, P 92, T 97.9, RR 9, SpO2 100 Na 146, GLUCOSE 153, LDL CHOLESTEROL 118, HDL 29 IS:DILAUDID 0.5mg INSULINE HUMAN 100ml IV HEPARIN SUBQ D5/NS x1L IV ICU STATUS
--- NOTE | 2019-01-17 12:02 | NUR ---
*-* INSURANCE *-* ALL CLINICALS AND REVIEWS HAVE BEEN FAXED TO: NEW SPOKE TO: JOAN ROSAS. WILL BE TRACKING SEND CLINICALS TO [phone]
--- NOTE | 2019-01-17 12:31 | NUR ---
NURSE NOTES: Dr Bhatt here to see the patient. Updated him with pt's current condition. Orders received, noted, and carried out. Will continue to monitor pt.
[2019-01-17 12:41] LABS: PHOSPHORUS 1.8 MG/DL (2.5-4.9)
--- NOTE | 2019-01-17 12:44 | Diagnostic Imaging Report ---
Indication: Dyspnea Comparison: None A single view chest radiograph was obtained. Findings: Cardiomediastinal appearance is within normal limits for age. The lungs are clear. Pulmonary vascularity is appropriate. The diaphragmatic contour is smooth and costophrenic angles are sharp. No pleural effusions are identified. The bones are unremarkable. Impression: No acute findings
[2019-01-17 13:05] LABS: ANION GAP 9 mmol/L (5-15); BLOOD UREA NITROGEN 11 mg/dL (7-18); CALCIUM 8.5 MG/DL (8.5-10.1); CARBON DIOXIDE 23 MMOL/L (21-32); CHLORIDE 115 MMOL/L (98-107); CREATININE 1.1 MG/DL (0.55-1.30); POTASSIUM 3.2 MMOL/L (3.5-5.1); SODIUM 146 MMOL/L (136-145)
[2019-01-17] MEDS ORDERED: Levemir Flexpen SUBQ ONE (13:30)
[2019-01-17] MEDS ORDERED: Potassium Phosphate 20 MM in NS 275 ML IV ONE (14:00)
--- NOTE | 2019-01-17 14:19 | Consultation ---
Consult Note Consult Note asked to consult for fluid management This patient complains of one day of nausea, vomiting and abdominal pain. He has a history of diabetes. Denies recent illness. Denies fever or chills. He states that he has been using his insulin. He has no other complaints. No Known Allergies (Unverified , 01/16/19) Past Medical History: see triage record, DM, HTN Social History: Denies: smoking, alcohol use, drug use Reviewed Nursing Documentation: PMH: Agreed; PSxH: Agreed Past Medical History: No History, Except For Hx Cardiac Problems: Yes - high cholesterol Hx Hypertension: Yes Hx Diabetes: Yes examined data reviewed Assessment/Plan DM DKA Low K and Phos HTN OOC IV fluid BS and BP management per orders Nas Pabon MD Jan 17, 2019 14:19
[2019-01-17] MEDS ORDERED: D5NS 1,000 ML IV SCH (14:30)
[2019-01-17] MEDS ORDERED: Lisinopril 10mg tab ORAL SCH ×2 (14:30)
--- NOTE | 2019-01-17 15:31 | NUR ---
NURSE NOTES: PRN Zofran IV given for nausea. BS 106. Insulin drip stopped as per order. Will continue to monitor.
--- NOTE | 2019-01-17 15:36 | NUR ---
NURSE NOTES: PRN Dilaudid 0.5mg IVP given for abdominal pain. Will continue to monitor.
[2019-01-17] MEDS: NovoLOG Insulin Flexpen SUBQ SCH ×2 (16:30→21:00)
--- NOTE | 2019-01-17 17:30 | NUR ---
NURSE NOTES: Received SBAR from Chandana. Patient is alert and oriented to place, purpose, time and person. Patient is s/p insulin gtt today which was discontinues around 1500 and placed on AC/HS glucose checks. Vitals: HR 90 SR, BP 134/64, RR 16, Spo2 at 100% while on Room air. Patient is ambulatory and can ambulate without much assistance. Patient has 2 Iv line, one on the R FA 18G and the other on the L AC 18G. Patients running D5NS @ 75ml/hr. Both IV lines are patent, intact and asymptomatic. Patient is able to use the urinal to void or use toilet. Patient is experiencing some nausea at this time, antiemetics was given earlier. Patient is refusing anything to eat at this as he has not much of an appetite at this time. No acute distress at this time, patient is stable, will continue to monitor. Addendum: 01/17/19 at 193 by LEXIE DOZIER RN disregarding this note, should be for 1936
--- NOTE | 2019-01-17 17:45 | Consultation ---
DATE OF CONSULTATION: 01/17/2019 ENDOCRINOLOGY CONSULTATION CONSULTING PHYSICIAN: Andrei Collins M.D. REFERRING PHYSICIAN: Bria Moss M.D. REASON FOR CONSULTATION: Diabetes ketoacidosis. HISTORY OF PRESENT ILLNESS: This is a 28-year-old male with history of insulin-dependent diabetes, hyperlipidemia, hypertension, who presented to the hospital with nausea, vomiting, abdominal pain. No recent illness. He was apparently using his insulin without any complaints. In the emergency room, he was noted to have WBC of 9.7, hemoglobin of 14, hematocrit of 42, platelets of 217. Sodium 146, potassium 3.8, chloride of 116, bicarb of 16, BUN of 15, creatinine of 1.3 with an anion gap of 16, glucose was 129 with a calcium of 8.1. The patient was diagnosed with ketoacidosis, admitted to the ICU for IVF and IV insulin. Endocrinology was consulted. PAST MEDICAL HISTORY: Hyperlipidemia and hypertension, insulin-dependent diabetes. PAST SURGICAL HISTORY: None. MEDICATIONS: reviewed and reconciled ALLERGIES TO MEDICATIONS: None. SOCIAL HISTORY: No smoking, alcohol, or drug use. REVIEW OF SYSTEMS: As per history of present illness. PHYSICAL EXAMINATION: VITAL SIGNS: Blood pressure 113/68, pulse 90, respiratory rate of 12, temperature of 98. HEAD AND NECK: No JVD. HEART: Regular. LUNGS: Clear. ABDOMEN: Positive bowel sounds. EXTREMITIES: No clubbing, cyanosis, or edema. LABORATORY DATA: Laboratory values discussed in history of present illness. DIAGNOSES: 1. Diabetic ketoacidosis. 2. Type 1 diabetes. PLAN: 1. Continue insulin drip until the gap is closed. 2. Continue IV fluids. 3. Convert insulin regimen to subcutaneous once the labs are available. 4. Follow the electrolytes and replete and follow the patient during hospital stay. Thank you Dr. Moss for the courtesy of this consultation. Andrei Collins M.D. DR: VIET/lisette JOB#: [id number] CC: LISY
[2019-01-17] MEDS ORDERED: Docusate 100mg cap ORAL SCH (18:00)
--- NOTE | 2019-01-17 18:01 | Consultation ---
DATE OF CONSULTATION: 01/17/2019 INFECTIOUS DISEASE CONSULT: CONSULTING PHYSICIAN: Donnie Mckeon M.D. PRIMARY ATTENDING: Bria Moss M.D. REASON FOR CONSULT: Systemic inflammatory response syndrome. HISTORY OF PRESENT ILLNESS: This is a 28-year-old male admitted yesterday from home complaining of nausea, vomiting, abdominal pain. He was found to have blood sugar of 555 in the ER. He is diabetic for many years. States that he had a couple of days ago started to have nausea, vomiting that attributed to eating bad food. PAST MEDICAL HISTORY: Diabetes mellitus type 1 for 17 years, has also hypertension and hyperlipidemia. ALLERGIES: No known drug allergy. MEDICATIONS: Insulin drip, hydralazine, heparin, Tylenol, hydromorphone, Zofran. SOCIAL HISTORY: Single. Denies alcohol, drug abuse, or smoking. Has 1 son. REVIEW OF SYSTEMS: No fever. No chills. No nausea. No vomiting. No coughing. No diarrhea. PHYSICAL EXAMINATION: VITAL SIGNS: Temperature 98, afebrile since admission, pulse is 90 tachycardia at the time of admission with heart rate of 124, blood pressure is 113/68. Blood pressure was as low as 87/70. GENERAL APPEARANCE: No acute distress. HEAD AND NECK: [place] conjunctivae. Has some dark pigmentation of tongue. Has slightly dry mouth. HEART: Normal rate. LUNGS: Clear. ABDOMEN: Soft, nontender. EXTREMITIES: Has no edema. LABORATORY AND DIAGNOSTIC DATA: Sodium 141, potassium 3.5, chloride 115, bicarb 18, glucose is 153, BUN 12, creatinine 1.2. Acetone was positive. UA negative except ketone, blood, glucose, and protein. IMPRESSION: 1. Systemic inflammatory response syndrome, likely non-infectious in origin. 2. Diabetic ketoacidosis. 3. Diabetes type 1. 4. Hypertension. RECOMMENDATION: We will observe off antibiotics. The patient will continue insulin. We will follow up the cultures. At the end of my exam, I thank Dr. Moss for involving me in the care of this patient. Donnie Mckeon M.D. DR: TRINITY JOB#: [id number] CC: LISY
--- NOTE | 2019-01-17 18:23 | NUR ---
NURSE NOTES: Pt refused to eat dinner since he still feels a bit nauseous. Pt drank diet cranberry juice. Pt did oral care by himself in bed. Pt stated "I feel better". Pt is able to self-reposition. VSS. Will continue to monitor.
--- NOTE | 2019-01-17 19:27 | NUR ---
HAND-OFF: Report given to VIET Kirby. Endorsed plan of care.
--- NOTE | 2019-01-17 19:39 | NUR ---
NURSE NOTES: Received SBAR from Chandana. Patient is alert and oriented to place, purpose, time and person. Patient is s/p insulin gtt today which was discontinues around 1500 and placed on AC/HS glucose checks. Vitals: HR 90 SR, BP 134/64, RR 16, Spo2 at 100% while on Room air. Patient is ambulatory and can ambulate without much assistance. Patient has 2 Iv line, one on the R FA 18G and the other on the L AC 18G. Patients running D5NS @ 75ml/hr. Both IV lines are patent, intact and asymptomatic. Patient is able to use the urinal to void or use toilet. Patient is experiencing some nausea at this time, antiemetics was given earlier. Patient is refusing anything to eat at this as he has not much of an appetite at this time. No acute distress at this time, patient is stable, will continue to monitor.
--- NOTE | 2019-01-17 20:00 | NUR ---
NURSE NOTES: Patients sister brought patient Cell phone and [employer] [place] phone. Both battery charger tester and cell phone are at bedside. belonging list have been updated.
[2019-01-17] MEDS ORDERED: Levemir Flexpen SUBQ SCH (21:00)
--- NOTE | 2019-01-17 21:00 | NUR ---
NURSE NOTES: Patients blood glucose was 60. 25ml and D50% IVP was give. 1 cup or orange juice also was provided. Given that patient is feeling nauseated and vomiting clear emesis, Zofran was given. Protonix was also given as scheduled as it may help a little. Patient was also demonstrating abdominal pain. Patient was given 0.5mg IVP of Dilaudid. Patient states pain to be 10/10. Blood pressure is hypertensive but as a result of the pain and nausea. Breathing rate is fine, 16bpm.
--- NOTE | 2019-01-17 23:15 | History and Physical Report ---
DATE OF ADMISSION: 01/16/2019 HISTORY OF PRESENT ILLNESS: The patient admitted to the ICU for DKA. The patient is complaining of vomiting, abdominal pain for 5 days. Takes insulin. The patient has been diabetic for 17 years. Also, has history of hypertension, hyperlipidemia. The patient has history of polyuria, some abdominal pain. No diarrhea. [place] weak. PAST MEDICAL HISTORY: Significant for IDDM type 1, hypertension, and hyperlipidemia. MEDICATIONS: He takes insulin. PAST SURGICAL HISTORY: None. FAMILY HISTORY: Does have history of diabetes. ALLERGIES: No known allergies. SOCIAL HISTORY: Denies smoking, alcohol, or illicit drugs. REVIEW OF SYSTEMS: HEENT: Denies headaches. RESPIRATORY: Denies shortness of breath. Denies cough. CARDIOVASCULAR: Denies chest pain. ABDOMEN: Reports vomiting and abdominal pain for 5 days. EXTREMITIES: Denies pain in lower extremities. NEUROLOGIC: Denies change in vision or speech pattern. Feels weak. PHYSICAL EXAMINATION: VITAL SIGNS: Temperature is 97.7, pulse is 89, and blood pressure 126/77. HEENT: PERRLA. NECK: Supple. No lymphadenopathy. CHEST: Clear to auscultation. CARDIOVASCULAR: Regular rate and rhythm. No murmurs or extra sounds. GASTROINTESTINAL: Admitted with mild tenderness. No rebound. Abdomen is soft. No organomegaly. EXTREMITIES: No edema. Reflexes are equal on both sides. Moves all four extremities. LABORATORY DATA: WBC of 9.7, hemoglobin of 14.2, platelets of 217. Sodium 145, potassium 3.5, glucose of 153, carbon dioxide of 18. ASSESSMENT AND PLAN: The patient is admitted to ICU originally for DKA. The patient has also had vomiting, abdominal pain, most likely due to DKA. I have had basically consulted Dr. Medel, Dr. Pabon, Dr. Collins, Dr. Donnie Mckeon, Dr. Bhatt for the management of the DKA and rule out any infectious etiology as well as for electrolyte imbalance, replacement. Bria Moss M.D. DR: GASPER JOB#: [id number] CC:
[2019-01-18] MEDS: D5NS 1,000 ML IV SCH ×2 (00:05→12:58)
[2019-01-18] MEDS ORDERED: DiphenhydrAMINE 50mg/ml Inj IVP PRN (00:15)
--- NOTE | 2019-01-18 01:00 | NUR ---
NURSE NOTES: Received pt transferred from ICU on hospital bed, alert and oriented x4. No complaint of pain at this time. Instructed the use of call light. Call light within reach. Bed in lowest position, lock engaged and alarm on. Will continue to monitor.
--- NOTE | 2019-01-18 02:45 | Consultation ---
DATE OF CONSULTATION: 01/17/2019 CARDIOLOGY CONSULTATION CONSULTING PHYSICIAN: Drew Medel M.D. REFERRING PHYSICIAN: Bria Moss M.D. REASON FOR CONSULTATION: Management of tachycardia. HISTORY OF PRESENT ILLNESS: This is a very unfortunate 28-year-old gentleman, who presented to the hospital with abdominal pain, nausea, and vomiting. The patient has a history of diabetes mellitus type 1 and has been using insulin. He states that he has been compliant with the insulin. Other cardiovascular history is significant for history of hypertension and hypercholesterolemia. At the time of arrival to this hospital, blood pressure was 141/87 mmHg and heart rate is 124. A 12-lead echocardiogram was significant for sinus tachycardia at the rate of [address] and T-wave abnormalities. In the emergency room, the patient underwent workup. Laboratory finding was significant for glycosuria 4+ plus a ketonuria 4+, proteinuria 1+, and hematuria 2+, but no evidence of urinary tract infection. Chemistry was significant for BUN and creatinine of 19 and 1.3 respectively, bicarbonate level was 11, and anion gap was 28. The patient's blood sugar was 555. Acetone level in the serum was moderately positive. The patient was diagnosed with diabetes, ketoacidosis, and was transferred to the intensive care unit of [facility]. Cardiology consultation was made at the request of Dr. Moss for management of tachycardia. PAST MEDICAL HISTORY: 1. Diabetes mellitus. 2. Hypertension. 3. Hypercholesterolemia. PAST SURGICAL HISTORY: None. MEDICATIONS: List of medication includes insulin and Novolin sliding scale. ALLERGIES: No known drug allergies. FAMILY HISTORY: No premature coronary artery disease in the first-degree relatives. SOCIAL HISTORY: Denies any tobacco, alcohol, or illicit drug use. REVIEW OF SYSTEMS: A 12-system review done essentially negative except what is mentioned in the history of present illness. PHYSICAL EXAMINATION: VITAL SIGNS: Blood pressure at the time of arrival to the hospital was 141/87, respirations of 22, pulse of 124, temperature 98.1 degrees Fahrenheit, and O2 saturation of 99% on room air. GENERAL: The patient is a very unfortunate 28-year-old gentleman, in no apparent respiratory distress. Alert and oriented x4. HEENT: Atraumatic and normocephalic. Anicteric. Pupils are equal, round, and reactive to light and accommodation. Extraocular muscles intact. NECK: JVP less than 5 cm. No carotid bruit. Carotid upstroke is 2+ bilaterally. CARDIOVASCULAR: Normal S1, S2. Regular rate and rhythm. Tachycardic. No murmurs, gallops, or rubs. LUNGS: Clear to auscultation bilaterally. ABDOMEN: Soft, nontender, and nondistended. No hepatosplenomegaly. Positive bowel sounds. EXTREMITIES: No evidence of edema, clubbing, or cyanosis. LABORATORY FINDINGS: WBC was 9.7, hemoglobin of 14.2, hematocrit of 43.4, and platelet count is 217,000 with a left shift with neutrophils 81.5%. Chemistry showed sodium of 138, potassium is 4.8, chloride 99, and bicarbonate 11 . Anion gap was 28. BUN of 19 and creatinine 1.3 . Glucose was 555. Calcium is 9. Magnesium 1.8. Toxicology, serum acetone level was positive. Chest x-ray was significant for no acute cardiopulmonary disease. ASSESSMENT AND PLAN: The patient is a very unfortunate 28-year-old gentleman seen in Cardiology consultation. The patient is seen in the intensive care unit of [facility]. 1. Sinus tachycardia. The treatment of this condition obviously is inclusive hydration and improving the intravascular volume contraction with ideally normal saline. There is no requirement for AV pooja agents in this patient. 2. History of hypertension. I agree with lisinopril 10 mg. Continue monitoring the patient's creatinine. His baseline creatinine was 1.3. 3. Type 1 diabetes mellitus. The patient to be followed by endocrine specialist. 4. Diabetes ketoacidosis with anion gap of 28, continue management per endocrine. 5. History of hyperlipidemia. The patient shows low HDL level. May benefit from statins as LDL is also above 100. We will start the patient with low-dose statin. 6. Total amount of time spent in the evaluation of this patient in the intensive care unit of [facility] discussing the plan of care with the nursing staff as well as primary care physician and review of the old record is 50 minutes. I would like to thank, Dr. Moss, for the courtesy of this consultation. Drew Medel M.D. DR: KARLO JOB#: [id number] CC:
[2019-01-18 04:00] VITALS: BP 156/102
[2019-01-18] MEDS: NovoLOG Insulin Flexpen SUBQ SCH ×4 (05:33→20:39)
[2019-01-18 06:38] LABS: BASOPHILS % (AUTO) 0.8 % (0.0-2.0); HEMATOCRIT 38.7 % (42.0-52.0); HEMOGLOBIN 13.1 G/DL (14.2-18.0); LYMPHOCYTES % (AUTO) 28.2 % (20.0-45.0); MEAN CORPUSCULAR VOLUME 89 FL (80-99); MONOCYTES % (AUTO) 9.9 % (1.0-10.0); NEUTROPHILS % (AUTO) 61.1 % (45.0-75.0); PLATELET COUNT 178 K/UL (150-450); RED BLOOD COUNT 4.35 M/UL (4.70-6.10); RED CELL DISTRIBUTION WIDTH 11.6 % (11.6-14.8); WHITE BLOOD COUNT 5.6 K/UL (4.8-10.8)
--- NOTE | 2019-01-18 06:50 | NUR ---
NURSE NOTES: Called Dr. Moss for patient's low blood sugar and IV enalapril can be given in med surg unit instead of IV hydralazine.
[2019-01-18 07:07] LABS: ALANINE AMINOTRANSFERASE 29 U/L (12-78); ALBUMIN/GLOBULIN RATIO 0.9 (1.0-2.7); ALKALINE PHOSPHATASE 67 U/L (46-116); ANION GAP 9 mmol/L (5-15); ASPARTATE AMINO TRANSFERASE 24 U/L (15-37); BILIRUBIN,TOTAL 0.4 MG/DL (0.2-1.0); BLOOD UREA NITROGEN 7 mg/dL (7-18); CALCIUM 8.6 MG/DL (8.5-10.1); CARBON DIOXIDE 25 MMOL/L (21-32); CHLORIDE 109 MMOL/L (98-107); CREATINE KINASE 45 U/L (26-308); CREATININE 0.9 MG/DL (0.55-1.30); GAMMA GLUTAMYL TRANSPEPTIDASE 67 U/L (5-85); PHOSPHORUS 2.4 MG/DL (2.5-4.9); SODIUM 143 MMOL/L (136-145)
[2019-01-18 07:20] LABS: POTASSIUM 2.5 MMOL/L (3.5-5.1)
--- NOTE | 2019-01-18 07:37 | NUR ---
HAND-OFF: Report given to VIET Sawyer.
--- NOTE | 2019-01-18 07:50 | NUR ---
NURSE NOTES: Received patient on bed, asleep. IV sites intact and patent. Bed in low and locked position, call light in reach. No signs of respiratory distress or pain. Room board updated, will continue to monitor.
--- NOTE | 2019-01-18 07:54 | NUR ---
NURSE NOTES: Received notification from Marcia from the lab. Patient potassium level is 2.3 this morning. Left message with MD Moss, awaiting any new orders.
--- NOTE | 2019-01-18 08:15 | NUR ---
NURSE NOTES: Received call back from MD Moss who instructed me to notify MD Pabon about the potassium level.
[2019-01-18] MEDS: Hydromorphone 0.5mg/0.5ml inj IVP PRN ×2 (08:16→21:39)
--- NOTE | 2019-01-18 08:31 | NUR ---
NURSE NOTES: Left message for MD Still per MD Moss instructions about this morning potassium level 2.3. Awaiting any new orders.
[2019-01-18] MEDS ORDERED: Lisinopril 10mg tab ORAL SCH (09:00)
[2019-01-18] MEDS: Docusate 100mg cap ORAL SCH ×3 (09:01→18:30)
[2019-01-18] MEDS: Heparin 5000 units/ml inj SUBQ SCH ×2 (09:04→20:38)
[2019-01-18] MEDS ORDERED: Potassium Phosphate 30 MM in NS 275 ML IV SCH (10:00)
--- NOTE | 2019-01-18 10:18 | Nephrology Progress Note ---
Assessment/Plan Problem List: (1) DKA (diabetic ketoacidoses) (2) Uncontrolled hypertension (3) Hypokalemia Assessment DM DKA Low K and Phos HTN OOC Plan IV fluid BS and BP management urine tox screen per orders Objective Objective Last 24 Hour Vital Signs Date Time Temp Pulse Resp B/P (MAP) Pulse Ox O2 Delivery O2 Flow Rate FiO2 01/18/19 09:01 156/102 01/18/19 04:00 98.5 105 10 156/102 (120) 99 01/17/19 21:00 102 9 179/97 (124) 100 01/17/19 20:00 98.3 100 8 176/99 (124) 100 01/17/19 20:00 Room Air 01/17/19 20:00 106 01/17/19 19:00 88 19 134/84 (101) 99 01/17/19 18:00 103 17 159/93 (115) 99 01/17/19 17:00 87 10 128/78 (95) 99 01/17/19 16:00 89 10 126/77 (93) 99 01/17/19 16:00 Room Air 01/17/19 16:00 86 01/17/19 16:00 97.7 01/17/19 15:00 95 10 152/90 (110) 100 01/17/19 14:52 132/82 01/17/19 14:00 97 12 129/79 (96) 99 01/17/19 13:00 90 14 125/74 (91) 99 01/17/19 12:00 97.9 96 15 139/81 (100) 100 01/17/19 12:00 93 01/17/19 12:00 Room Air 01/17/19 11:00 92 11 141/81 (101) 100 Intake and Output 01/17/19 01/18/19 19:00 07:00 Intake Total 2037.220 ml 718 ml Output Total 500 ml 30 ml Balance 1537.220 ml 688 ml Intake Oral 210 ml 118 ml IV Total 1827.220 ml 600 ml Output Urine Total 500 ml 0 ml Emesis 30 ml Laboratory Tests 01/17/19 12:05: Sodium Level 146H, Potassium Level 3.2L, Chloride Level 115H, Carbon Dioxide Level 23, Anion Gap 9, Blood Urea Nitrogen 11, Creatinine 1.1, Estimat Glomerular Filtration Rate > 60, Glucose Level 121H, Calcium Level 8.5, Phosphorus Level 1.8L, Magnesium Level 1.9 01/18/19 06:00: Sodium Level 143, Potassium Level 2.5*L, Chloride Level 109H, Carbon Dioxide Level 25, Anion Gap 9, Blood Urea Nitrogen 7, Creatinine 0.9, Estimat Glomerular Filtration Rate > 60, Glucose Level 54L, Calcium Level 8.6, Phosphorus Level 2.4L, Magnesium Level 1.6L, White Blood Count 5.6, Red Blood Count 4.35L, Hemoglobin 13.1L, Hematocrit 38.7L, Mean Corpuscular Volume 89, Mean Corpuscular Hemoglobin 30.2, Mean Corpuscular Hemoglobin Concent 33.9, Red Cell Distribution Width 11.6, Platelet Count 178, Mean Platelet Volume 8.2, Neutrophils (%) (Auto) 61.1, Lymphocytes (%) (Auto) 28.2, Monocytes (%) (Auto) 9.9, Eosinophils (%) (Auto) 0.0, Basophils (%) (Auto) 0.8, Uric Acid 3.2, Total Bilirubin 0.4, Gamma Glutamyl Transpeptidase 67, Aspartate Amino Transf (AST/ SGOT) 24, Alanine Aminotransferase (ALT/SGPT) 29, Alkaline Phosphatase 67, Total Creatine Kinase 45, C-Reactive Protein, Quantitative < 0.4, Total Protein 6.2L, Albumin 3.0L, Globulin 3.2, Albumin/Globulin Ratio 0.9L, Thyroid Stimulating Hormone (TSH) 0.785 Height (Feet): 5 Height (Inches): 7.00 Weight (Pounds): 168 Nas Pabon MD Jan 18, 2019 10:18
[2019-01-18] MEDS: Metoprolol Tartrate 12.5mg TAB ORAL SCH ×2 (10:36→20:36)
[2019-01-18 12:00] VITALS: BP 143/91
[2019-01-18 13:15] LABS: APPEARANCE,URINE CLEAR; BILIRUBIN, URINE NEGATIVE (NEGATIVE); COLOR,URINE PALE YELLOW; GLUCOSE, URINE (UA) 3+ (NEGATIVE); KETONES,URINE 1+ (NEGATIVE); LEUKOCYTE ESTERASE ,URINE NEGATIVE (NEGATIVE); NITRITE,URINE NEGATIVE (NEGATIVE); PH,URINE 6 (4.5-8.0); PROTEIN,URINE NEGATIVE (NEGATIVE); UROBILINOGEN,URINE NORMAL MG/DL (0.0-1.0)
--- NOTE | 2019-01-18 14:31 | NUR ---
CERTIFIED RESPIRATORY THERAPISTFINANCIAL RESERVE CLERK SI:DKA . UNCONTROLLED HTN VS: BP 179/97, T 97.8, P 106, RR 8, SpO2 98 RBC 4.35, H&H 13.1/38.7, K 2.5, IS:MAGNESIUM SULFATE 100ml IVPB D5/NS x1L IV K-DUR 40meq NOVOLOG SUBQ ZOSYN 285ml IV LOPRESSOR 12.5mg HEPARIN SUBQ D5W 50ml IV MED/SURG STATUS
[2019-01-18 16:00] VITALS: BP 131/90
--- NOTE | 2019-01-18 16:13 | Infectious Diseases Prog Note ---
Assessment/Plan Assessment/Plan IMPRESSION: 1. Systemic inflammatory response syndrome, likely non-infectious in origin. 2. Diabetic ketoacidosis. 3. Diabetes type 1. 4. Hypertension. RECOMMENDATION: We will observe off antibiotics. Subjective ROS Limited/Unobtainable: Yes Constitutional: Reports: other - doing better, transferred out of ICU Allergies: Coded Allergies: No Known Allergies (Unverified , 01/16/19) Objective Vital Signs Last 24 Hour Vital Signs Date Time Temp Pulse Resp B/P (MAP) Pulse Ox O2 Delivery O2 Flow Rate FiO2 01/18/19 12:00 97.8 76 17 143/91 (108) 98 01/18/19 10:36 105 156/102 01/18/19 09:01 156/102 01/18/19 04:00 98.5 105 10 156/102 (120) 99 01/17/19 21:00 102 9 179/97 (124) 100 01/17/19 20:00 98.3 100 8 176/99 (124) 100 01/17/19 20:00 Room Air 01/17/19 20:00 106 01/17/19 19:00 88 19 134/84 (101) 99 01/17/19 18:00 103 17 159/93 (115) 99 01/17/19 17:00 87 10 128/78 (95) 99 Height (Feet): 5 Height (Inches): 7.00 Weight (Pounds): 168 General Appearance: no acute distress HEENT: mucous membranes moist Respiratory/Chest: lungs clear Cardiovascular: normal rate Abdomen: soft, non tender Extremities: no edema Neurologic/Psychiatric: other - sleeping Microbiology Date/Time Source Procedure Growth Status 01/16/19 17:50 Nasal Nares MRSA Culture - Final NO METHICILLIN RESISTANT STAPH AUREUS... Complete 01/16/19 17:50 Rectum VRE Culture - Final NO VANCOMYCIN RESISTANT ENTEROCOCCUS ... Complete 01/16/19 17:50 Rectum - Final NO CARBAPENEM-RESISTANT ENTEROBACTERI... Complete Laboratory Tests Test 01/18/19 06:00 01/18/19 11:10 White Blood Count 5.6 K/UL (4.8-10.8) Red Blood Count 4.35 M/UL (4.70-6.10) L Hemoglobin 13.1 G/DL (14.2-18.0) L Hematocrit 38.7 % (42.0-52.0) L Mean Corpuscular Volume 89 FL (80-99) Mean Corpuscular Hemoglobin 30.2 PG (27.0-31.0) Mean Corpuscular Hemoglobin Concent 33.9 G/DL (32.0-36.0) Red Cell Distribution Width 11.6 % (11.6-14.8) Platelet Count 178 K/UL (150-450) Mean Platelet Volume 8.2 FL (6.5-10.1) Neutrophils (%) (Auto) 61.1 % (45.0-75.0) Lymphocytes (%) (Auto) 28.2 % (20.0-45.0) Monocytes (%) (Auto) 9.9 % (1.0-10.0) Eosinophils (%) (Auto) 0.0 % (0.0-3.0) Basophils (%) (Auto) 0.8 % (0.0-2.0) Sodium Level 143 MMOL/L (136-145) Potassium Level 2.5 MMOL/L (3.5-5.1) *L Chloride Level 109 MMOL/L (98-107) H Carbon Dioxide Level 25 MMOL/L (21-32) Anion Gap 9 mmol/L (5-15) Blood Urea Nitrogen 7 mg/dL (7-18) Creatinine 0.9 MG/DL (0.55-1.30) Estimat Glomerular Filtration Rate > 60 mL/min (>60) Glucose Level 54 MG/DL (74-106) L Uric Acid 3.2 MG/DL (2.6-7.2) Calcium Level 8.6 MG/DL (8.5-10.1) Phosphorus Level 2.4 MG/DL (2.5-4.9) L Magnesium Level 1.6 MG/DL (1.8-2.4) L Total Bilirubin 0.4 MG/DL (0.2-1.0) Gamma Glutamyl Transpeptidase 67 U/L (5-85) Aspartate Amino Transf (AST/SGOT) 24 U/L (15-37) Alanine Aminotransferase (ALT/SGPT) 29 U/L (12-78) Alkaline Phosphatase 67 U/L (46-116) Total Creatine Kinase 45 U/L (26-308) C-Reactive Protein, Quantitative < 0.4 mg/dL (0.00-0.90) Total Protein 6.2 G/DL (6.4-8.2) L Albumin 3.0 G/DL (3.4-5.0) L Globulin 3.2 g/dL Albumin/Globulin Ratio 0.9 (1.0-2.7) L Thyroid Stimulating Hormone (TSH) 0.785 uiU/mL (0.358-3.740) Urine Color Pale yellow Urine Appearance Clear Urine pH 6 (4.5-8.0) Urine Specific [place] 1.010 (1.005-1.035) Urine Protein Negative (NEGATIVE) Urine Glucose (UA) 3+ (NEGATIVE) H Urine Ketones 1+ (NEGATIVE) H Urine Blood 3+ (NEGATIVE) H Urine Nitrite Negative (NEGATIVE) Urine Bilirubin Negative (NEGATIVE) Urine Urobilinogen Normal MG/DL (0.0-1.0) Urine Leukocyte Esterase Negative (NEGATIVE) Urine RBC 2-4 /HPF (0 - 0) H Urine WBC 0 /HPF (0 - 0) Urine Squamous Epithelial Cells None /LPF (NONE/OCC) Urine Bacteria None /HPF (NONE) Urine Opiates Screen Negative (NEGATIVE) Urine Barbiturates Screen Negative (NEGATIVE) Phencyclidine (PCP) Screen Negative (NEGATIVE) Urine Amphetamines Screen Negative (NEGATIVE) Urine Benzodiazepines Screen Negative (NEGATIVE) Urine Cocaine Screen Negative (NEGATIVE) Urine Marijuana (THC) Screen Negative (NEGATIVE) Current Medications Medications (Trade) Dose Ordered Sig/Moise Route PRN Reason Start Time Stop Time Status Last Admin Dose Admin Acetaminophen (Tylenol) 650 mg Q6H PRN ORAL Mild Pain/Temp > 100.5 01/18/19 00:15 02/15/19 18:14 Atorvastatin Calcium (Lipitor) 20 mg BEDTIME ORAL 01/18/19 21:00 02/17/19 20:59 Dextrose (Dextrose 50%) 25 ml Q30M PRN IV Hypoglycemia 01/18/19 00:00 02/16/19 12:29 Dextrose (Dextrose 50%) 50 ml Q30M PRN IV Hypoglycemia 01/18/19 00:00 02/16/19 12:29 01/18/19 06:06 Dextrose/Sodium Chloride 1,000 ml @ 75 mls/hr [id number] IV 01/17/19 23:45 02/15/19 14:29 01/18/19 12:58 Diphenhydramine HCl (Benadryl) 25 mg Q6H PRN IVP Itching 01/18/19 00:15 02/15/19 18:14 Docusate Sodium (Colace) 100 mg THREE TIMES A DAY ORAL 01/18/19 09:00 02/16/19 17:59 01/18/19 12:58 Heparin Sodium (Porcine) (Heparin 5000 units/ml) 5,000 units EVERY 12 HOURS SUBQ 01/18/19 09:00 02/15/19 20:59 01/18/19 09:04 Hydromorphone HCl (Dilaudid) 0.5 mg Q3H PRN IVP Severe Pain (Pain Scale 7-10) 01/18/19 00:15 01/23/19 18:14 01/18/19 08:16 Insulin Aspart (NovoLOG) BEFORE MEALS AND HS SUBQ 01/18/19 06:30 02/16/19 16:29 01/18/19 12:06 Insulin Detemir (Levemir) 20 units BEDTIME SUBQ 01/18/19 21:00 02/16/19 20:59 Lisinopril (Zestril) 10 mg BID ORAL 01/18/19 18:00 02/16/19 14:29 Metoprolol Tartrate (Lopressor) 12.5 mg Q12HR ORAL 01/18/19 09:15 02/17/19 09:14 01/18/19 10:36 Ondansetron HCl (Zofran) 4 mg Q6H PRN IVP Nausea & Vomiting 01/18/19 00:00 02/15/19 17:59 Pantoprazole (Protonix) 40 mg EVERY 12 HOURS ORAL 01/18/19 09:00 02/16/19 20:59 01/18/19 09:01 Potassium Chloride (K-Dur) 40 meq TID ORAL 01/18/19 13:00 01/19/19 09:01 01/18/19 12:58 Donnie Mckeon MD Jan 18, 2019 16:13
[2019-01-18] MEDS: Lisinopril 10mg tab ORAL SCH (18:30)
--- NOTE | 2019-01-18 18:46 | General Progress Note ---
Assessment/Plan Problem List: (1) DKA (diabetic ketoacidoses) ICD Codes: E11.10 - Type 2 diabetes mellitus with ketoacidosis without coma SNOMED: 344921994, 53072506 (2) Uncontrolled hypertension ICD Codes: I10 - Essential (primary) hypertension SNOMED: 44959267, 40683594 (3) Hypokalemia ICD Codes: E87.6 - Hypokalemia SNOMED: 53024484 Assessment/Plan: DKA resolved - continue Levemir 20 units qhs - add Novolog 4 units ac tid - continue NISS ac / hs Subjective Allergies: Coded Allergies: No Known Allergies (Unverified , 01/16/19) All Systems: reviewed and negative except above Subjective events noted doing better Item Value Date Time Bedside Blood Glucose 123 mg/dl H 01/18/19 1709 Bedside Blood Glucose 119 mg/dl 01/18/19 1206 Bedside Blood Glucose 129 mg/dl H 01/18/19 0636 Bedside Blood Glucose 60 mg/dl L 01/17/19 2104 Objective Last 24 Hour Vital Signs Date Time Temp Pulse Resp B/P (MAP) Pulse Ox O2 Delivery O2 Flow Rate FiO2 01/18/19 18:30 131/90 01/18/19 12:00 97.8 76 17 143/91 (108) 98 01/18/19 10:36 105 156/102 01/18/19 09:01 156/102 01/18/19 04:00 98.5 105 10 156/102 (120) 99 01/17/19 21:00 102 9 179/97 (124) 100 01/17/19 20:00 98.3 100 8 176/99 (124) 100 01/17/19 20:00 Room Air 01/17/19 20:00 106 01/17/19 19:00 88 19 134/84 (101) 99 Intake and Output 01/17/19 01/18/19 19:00 07:00 Intake Total 2037.220 ml 718 ml Output Total 500 ml 30 ml Balance 1537.220 ml 688 ml Intake Oral 210 ml 118 ml IV Total 1827.220 ml 600 ml Output Urine Total 500 ml 0 ml Emesis 30 ml Laboratory Tests 01/18/19 06:00: White Blood Count 5.6, Red Blood Count 4.35L, Hemoglobin 13.1L, Hematocrit 38.7L , Mean Corpuscular Volume 89, Mean Corpuscular Hemoglobin 30.2, Mean Corpuscular Hemoglobin Concent 33.9, Red Cell Distribution Width 11.6, Platelet Count 178, Mean Platelet Volume 8.2, Neutrophils (%) (Auto) 61.1, Lymphocytes (% ) (Auto) 28.2, Monocytes (%) (Auto) 9.9, Eosinophils (%) (Auto) 0.0, Basophils ( %) (Auto) 0.8, Sodium Level 143, Potassium Level 2.5*L, Chloride Level 109H, Carbon Dioxide Level 25, Anion Gap 9, Blood Urea Nitrogen 7, Creatinine 0.9, Estimat Glomerular Filtration Rate > 60, Glucose Level 54L, Uric Acid 3.2, Calcium Level 8.6, Phosphorus Level 2.4L, Magnesium Level 1.6L, Total Bilirubin 0.4, Gamma Glutamyl Transpeptidase 67, Aspartate Amino Transf (AST/SGOT) 24, Alanine Aminotransferase (ALT/SGPT) 29, Alkaline Phosphatase 67, Total Creatine Kinase 45, C-Reactive Protein, Quantitative < 0.4, Total Protein 6.2L, Albumin 3.0L, Globulin 3.2, Albumin/Globulin Ratio 0.9L, Thyroid Stimulating Hormone ( TSH) 0.785 01/18/19 11:10: Urine Color Pale yellow, Urine Appearance Clear, Urine pH 6, Urine Specific [place] 1.010, Urine Protein Negative, Urine Glucose (UA) 3+H, Urine Ketones 1+H , Urine Blood 3+H, Urine Nitrite Negative, Urine Bilirubin Negative, Urine Urobilinogen Normal, Urine Leukocyte Esterase Negative, Urine RBC 2-4H, Urine WBC 0, Urine Squamous Epithelial Cells None, Urine Bacteria None, Urine Opiates Screen Negative, Urine Barbiturates Screen Negative, Phencyclidine (PCP) Screen Negative, Urine Amphetamines Screen Negative, Urine Benzodiazepines Screen Negative, Urine Cocaine Screen Negative, Urine Marijuana (THC) Screen Negative Height (Feet): 5 Height (Inches): 7.00 Weight (Pounds): 168 General Appearance: no apparent distress Neck: normal alignment Cardiovascular: normal rate Respiratory/Chest: lungs clear Abdomen: normal bowel sounds Pelvis: normal external exam Edema: no edema noted Arm (L), no edema noted Arm (R), no edema noted Leg (L), no edema noted Leg (R), no edema noted Pedal (L), no edema noted Pedal (R), no edema noted Generalized Objective Current Medications Medications (Trade) Dose Ordered Sig/Moise Route PRN Reason Start Time Stop Time Status Last Admin Dose Admin Acetaminophen (Tylenol) 650 mg Q6H PRN ORAL Mild Pain/Temp > 100.5 01/18/19 00:15 02/15/19 18:14 Atorvastatin Calcium (Lipitor) 20 mg BEDTIME ORAL 01/18/19 21:00 02/17/19 20:59 Dextrose (Dextrose 50%) 25 ml Q30M PRN IV Hypoglycemia 01/18/19 00:00 02/16/19 12:29 Dextrose (Dextrose 50%) 50 ml Q30M PRN IV Hypoglycemia 01/18/19 00:00 02/16/19 12:29 01/18/19 06:06 Dextrose/Sodium Chloride 1,000 ml @ 75 mls/hr [id number] IV 01/17/19 23:45 02/15/19 14:29 01/18/19 12:58 Diphenhydramine HCl (Benadryl) 25 mg Q6H PRN IVP Itching 01/18/19 00:15 02/15/19 18:14 Docusate Sodium (Colace) 100 mg THREE TIMES A DAY ORAL 01/18/19 09:00 02/16/19 17:59 01/18/19 18:30 Heparin Sodium (Porcine) (Heparin 5000 units/ml) 5,000 units EVERY 12 HOURS SUBQ 01/18/19 09:00 02/15/19 20:59 01/18/19 09:04 Hydromorphone HCl (Dilaudid) 0.5 mg Q3H PRN IVP Severe Pain (Pain Scale 7-10) 01/18/19 00:15 01/23/19 18:14 01/18/19 08:16 Insulin Aspart (NovoLOG) BEFORE MEALS AND HS SUBQ 01/18/19 06:30 02/16/19 16:29 01/18/19 17:09 Insulin Detemir (Levemir) 20 units BEDTIME SUBQ 01/18/19 21:00 02/16/19 20:59 Lisinopril (Zestril) 10 mg BID ORAL 01/18/19 18:00 02/16/19 14:29 01/18/19 18:30 Metoprolol Tartrate (Lopressor) 12.5 mg Q12HR ORAL 01/18/19 09:15 02/17/19 09:14 01/18/19 10:36 Ondansetron HCl (Zofran) 4 mg Q6H PRN IVP Nausea & Vomiting 01/18/19 00:00 02/15/19 17:59 Pantoprazole (Protonix) 40 mg EVERY 12 HOURS ORAL 01/18/19 09:00 02/16/19 20:59 01/18/19 09:01 Potassium Chloride (K-Dur) 40 meq TID ORAL 01/18/19 13:00 01/19/19 09:01 01/18/19 18:31 Andrei Collins MD Jan 18, 2019 18:46
--- NOTE | 2019-01-18 19:29 | NUR ---
HAND-OFF: Report given to VIET Moralez.
--- NOTE | 2019-01-18 19:40 | NUR ---
NURSE NOTES: Received patient on bed, asleep. Patient is safe. Both IV lines are patent, intact, and no complications. Bed in low and locked position. Call light is within reach. All belongings at bed side, will continue to monitor
[2019-01-18 20:00] VITALS: BP 143/78
[2019-01-18] MEDS: Atorvastatin 20mg tab ORAL SCH (20:36)
[2019-01-18] MEDS ORDERED: Levemir Flexpen SUBQ SCH (21:00)
--- NOTE | 2019-01-18 21:38 | General Progress Note ---
Assessment/Plan Problem List: (1) Uncontrolled hypertension ICD Codes: I10 - Essential (primary) hypertension SNOMED: 50869581, 62022333 (2) DKA (diabetic ketoacidoses) ICD Codes: E11.10 - Type 2 diabetes mellitus with ketoacidosis without coma SNOMED: 830649415, 65168111 (3) Hypokalemia ICD Codes: E87.6 - Hypokalemia SNOMED: 47423395 Status: progressing Assessment/Plan: dka resolved lyte abnormality is improving afebrile htn Subjective ROS Limited/Unobtainable: Yes Allergies: Coded Allergies: No Known Allergies (Unverified , 01/16/19) Objective Last 24 Hour Vital Signs Date Time Temp Pulse Resp B/P (MAP) Pulse Ox O2 Delivery O2 Flow Rate FiO2 01/18/19 20:36 78 143/78 01/18/19 18:30 131/90 01/18/19 16:00 98.7 81 19 131/90 (104) 98 01/18/19 12:00 97.8 76 17 143/91 (108) 98 01/18/19 10:36 105 156/102 01/18/19 09:01 156/102 01/18/19 04:00 98.5 105 10 156/102 (120) 99 Intake and Output 01/17/19 01/18/19 18:59 06:59 Intake Total 1912.220 ml 843 ml Output Total 500 ml 30 ml Balance 1412.220 ml 813 ml Intake Oral 160 ml 168 ml IV Total 1752.220 ml 675 ml Output Urine Total 500 ml 0 ml Emesis 30 ml Laboratory Tests 01/18/19 06:00: White Blood Count 5.6, Red Blood Count 4.35L, Hemoglobin 13.1L, Hematocrit 38.7L , Mean Corpuscular Volume 89, Mean Corpuscular Hemoglobin 30.2, Mean Corpuscular Hemoglobin Concent 33.9, Red Cell Distribution Width 11.6, Platelet Count 178, Mean Platelet Volume 8.2, Neutrophils (%) (Auto) 61.1, Lymphocytes (% ) (Auto) 28.2, Monocytes (%) (Auto) 9.9, Eosinophils (%) (Auto) 0.0, Basophils ( %) (Auto) 0.8, Sodium Level 143, Potassium Level 2.5*L, Chloride Level 109H, Carbon Dioxide Level 25, Anion Gap 9, Blood Urea Nitrogen 7, Creatinine 0.9, Estimat Glomerular Filtration Rate > 60, Glucose Level 54L, Uric Acid 3.2, Calcium Level 8.6, Phosphorus Level 2.4L, Magnesium Level 1.6L, Total Bilirubin 0.4, Gamma Glutamyl Transpeptidase 67, Aspartate Amino Transf (AST/SGOT) 24, Alanine Aminotransferase (ALT/SGPT) 29, Alkaline Phosphatase 67, Total Creatine Kinase 45, C-Reactive Protein, Quantitative < 0.4, Total Protein 6.2L, Albumin 3.0L, Globulin 3.2, Albumin/Globulin Ratio 0.9L, Thyroid Stimulating Hormone ( TSH) 0.785 01/18/19 11:10: Urine Color Pale yellow, Urine Appearance Clear, Urine pH 6, Urine Specific [place] 1.010, Urine Protein Negative, Urine Glucose (UA) 3+H, Urine Ketones 1+H , Urine Blood 3+H, Urine Nitrite Negative, Urine Bilirubin Negative, Urine Urobilinogen Normal, Urine Leukocyte Esterase Negative, Urine RBC 2-4H, Urine WBC 0, Urine Squamous Epithelial Cells None, Urine Bacteria None, Urine Opiates Screen Negative, Urine Barbiturates Screen Negative, Phencyclidine (PCP) Screen Negative, Urine Amphetamines Screen Negative, Urine Benzodiazepines Screen Negative, Urine Cocaine Screen Negative, Urine Marijuana (THC) Screen Negative Height (Feet): 5 Height (Inches): 7.00 Weight (Pounds): 168 Neck: supple Cardiovascular: normal rate Respiratory/Chest: lungs clear Bria Moss MD Jan 18, 2019 21:38
--- NOTE | 2019-01-18 21:40 | NUR ---
NURSE NOTES: Patient complained pain 7 out of 10 on his abd. Pain medication given, see eMAR.
--- NOTE | 2019-01-18 22:39 | Pulmonolgy Critical Care Note ---
Critical Care - Asmt/Plan Assessment/Plan: Pulmonary Note HPI Patient is a 28 year old man with history of IDDM, HL and HTN admitted after complaining of one day of nausea, vomiting and abdominal pain. Denies recent illness. Denies fever or chills. No cough. He states that he has been using his insulin. He has no other complaints. Much improved Gap closed Allergies: No Known Allergies Past Medical History: IDDM, HTN, HL Social History: Denies: smoking, alcohol use, drug use All Other Systems: negative except mentioned in HPI Physical Exam Vital Signs Noted. General Appearance: no apparent distress, alert, GCS 15, non-toxic Head: normocephalic, atraumatic Eyes: bilateral eye normal inspection, bilateral eye PERRL ENT: hearing grossly normal, normal pharynx, no angioedema, normal voice Neck: full range of motion, supple/symm/no masses Respiratory: chest non-tender, lungs clear, normal breath sounds, no respiratory distress, no retraction, no accessory muscle use, speaking full sentences Cardiovascular: HS1, HS2 normal, RRR, no edema, tachycardia Gastrointestinal: normal bowel sounds, soft, non-distended, no guarding, no rebound, tenderness - mild tenderness Rectal: deferred Musculoskeletal: back normal, gait/station normal, normal range of motion, non- tender Neurologic: alert, oriented x3, responsive, motor strength/tone normal, sensory intact, speech normal Skin: normal color, no rash, warm/dry, well hydrated Impression: Primary Impression: Diabetic ketoacidoses, h/o IDDM Hypertension Hyperlipidemia Plan Insulin - Levamir per Endocrine PPX Monitor labs CXR PRN O2 Protonix Lipase Laboratory Tests Test 01/16/19 11:07 White Blood Count 9.7 K/UL (4.8-10.8) Red Blood Count 4.70 M/UL (4.70-6.10) Hemoglobin 14.2 G/DL (14.2-18.0) Hematocrit 43.4 % (42.0-52.0) Mean Corpuscular Volume 93 FL (80-99) Mean Corpuscular Hemoglobin 30.3 PG (27.0-31.0) Mean Corpuscular Hemoglobin Concent 32.7 G/DL (32.0-36.0) Red Cell Distribution Width 11.9 % (11.6-14.8) Platelet Count 217 K/UL (150-450) Mean Platelet Volume 9.6 FL (6.5-10.1) Neutrophils (%) (Auto) 81.5 % (45.0-75.0) H Lymphocytes (%) (Auto) 14.2 % (20.0-45.0) L Monocytes (%) (Auto) 3.6 % (1.0-10.0) Eosinophils (%) (Auto) 0.0 % (0.0-3.0) Basophils (%) (Auto) 0.6 % (0.0-2.0) Urine Color Pale yellow Urine Appearance Clear Urine pH 6 (4.5-8.0) Urine Specific [place] 1.020 (1.005-1.035) Urine Protein 1+ (NEGATIVE) H Urine Glucose (UA) 4+ (NEGATIVE) H Urine Ketones 4+ (NEGATIVE) H Urine Blood 2+ (NEGATIVE) H Urine Nitrite Negative (NEGATIVE) Urine Bilirubin Negative (NEGATIVE) Urine Urobilinogen Normal MG/DL (0.0-1.0) Urine Leukocyte Esterase Negative (NEGATIVE) Urine RBC 0-2 /HPF (0 - 0) H Urine WBC 0-2 /HPF (0 - 0) Urine Squamous Epithelial Cells Occasional /LPF Urine Bacteria Occasional /HPF (NONE) Sodium Level 138 MMOL/L (136-145) Potassium Level 4.8 MMOL/L (3.5-5.1) Chloride Level 99 MMOL/L (98-107) Carbon Dioxide Level 11 MMOL/L (21-32) L Anion Gap 28 mmol/L (5-15) H Blood Urea Nitrogen 19 mg/dL (7-18) H Creatinine 1.3 MG/DL (0.55-1.30) Estimate Glomerular Filtration Rate > 60 mL/min (>60) Glucose Level 555 MG/DL (74-106) *H Calcium Level 9.0 MG/DL (8.5-10.1) Magnesium Level 1.8 MG/DL (1.8-2.4) Total Bilirubin 0.9 MG/DL (0.2-1.0) Aspartate Amino Transferase (AST) 21 U/L (15-37) Alanine Aminotransferase (ALT) 33 U/L (12-78) Alkaline Phosphatase 92 U/L (46-116) Total Protein 7.4 G/DL (6.4-8.2) Albumin 3.9 G/DL (3.4-5.0) Globulin 3.5 g/dL Albumin/Globulin Ratio 1.1 (1.0-2.7) Acetone Level Positive-moderate (NEGATIVE) EKG: Rate: tachycardiac Rhythm: other - S.tachycardia ST Segments: no acute changes Critical Care - Objective Last 24 Hour Vital Signs Date Time Temp Pulse Resp B/P (MAP) Pulse Ox O2 Delivery O2 Flow Rate FiO2 01/18/19 20:36 78 143/78 01/18/19 20:00 98.2 78 20 143/78 (99) 99 01/18/19 18:30 131/90 01/18/19 16:00 98.7 81 19 131/90 (104) 98 01/18/19 12:00 97.8 76 17 143/91 (108) 98 01/18/19 10:36 105 156/102 01/18/19 09:01 156/102 01/18/19 04:00 98.5 105 10 156/102 (120) 99 Micro: Microbiology Date/Time Source Procedure Growth Status 01/16/19 17:50 Nasal Nares MRSA Culture - Final NO METHICILLIN RESISTANT STAPH AUREUS... Complete 01/16/19 17:50 Rectum VRE Culture - Final NO VANCOMYCIN RESISTANT ENTEROCOCCUS ... Complete 01/16/19 17:50 Rectum - Final NO CARBAPENEM-RESISTANT ENTEROBACTERI... Complete Accucheck: 165 Critical Care - Subjective ROS Limited/Unobtainable: No Sputum Amount: None I&O: Intake and Output 01/17/19 01/18/19 18:59 06:59 Intake Total 1912.220 ml 843 ml Output Total 500 ml 30 ml Balance 1412.220 ml 813 ml Intake Oral 160 ml 168 ml IV Total 1752.220 ml 675 ml Output Urine Total 500 ml 0 ml Emesis 30 ml Silverio Bhatt MD Jan 18, 2019 22:39
--- NOTE | 2019-01-18 22:42 | Cardiology Progress Note ---
Assessment/Plan Assessment/Plan 1. Sinus tachycardia, continue hydration. There is no requirement for AV pooja agents in this patient. 2. History of hypertension, continue lisinopril, 10 mg daily. 3. Type 1 diabetes mellitus. The patient to be followed by endocrine specialist. 4. Diabetes ketoacidosis with anion gap of 28, continue management per endocrine. 5. History of hyperlipidemia. The patient shows low HDL level. May benefit from statins as LDL is also above 100. We will start the patient with low-dose statin. Subjective Subjective Transferred to the med-surgical unit. Objective Last 24 Hour Vital Signs Date Time Temp Pulse Resp B/P (MAP) Pulse Ox O2 Delivery O2 Flow Rate FiO2 01/18/19 20:36 78 143/78 01/18/19 20:00 98.2 78 20 143/78 (99) 99 01/18/19 18:30 131/90 01/18/19 16:00 98.7 81 19 131/90 (104) 98 01/18/19 12:00 97.8 76 17 143/91 (108) 98 01/18/19 10:36 105 156/102 01/18/19 09:01 156/102 01/18/19 04:00 98.5 105 10 156/102 (120) 99 Intake and Output 01/17/19 01/18/19 18:59 06:59 Intake Total 1912.220 ml 843 ml Output Total 500 ml 30 ml Balance 1412.220 ml 813 ml Intake Oral 160 ml 168 ml IV Total 1752.220 ml 675 ml Output Urine Total 500 ml 0 ml Emesis 30 ml Laboratory Tests Test 01/18/19 06:00 01/18/19 11:10 White Blood Count 5.6 K/UL (4.8-10.8) Red Blood Count 4.35 M/UL (4.70-6.10) L Hemoglobin 13.1 G/DL (14.2-18.0) L Hematocrit 38.7 % (42.0-52.0) L Mean Corpuscular Volume 89 FL (80-99) Mean Corpuscular Hemoglobin 30.2 PG (27.0-31.0) Mean Corpuscular Hemoglobin Concent 33.9 G/DL (32.0-36.0) Red Cell Distribution Width 11.6 % (11.6-14.8) Platelet Count 178 K/UL (150-450) Mean Platelet Volume 8.2 FL (6.5-10.1) Neutrophils (%) (Auto) 61.1 % (45.0-75.0) Lymphocytes (%) (Auto) 28.2 % (20.0-45.0) Monocytes (%) (Auto) 9.9 % (1.0-10.0) Eosinophils (%) (Auto) 0.0 % (0.0-3.0) Basophils (%) (Auto) 0.8 % (0.0-2.0) Sodium Level 143 MMOL/L (136-145) Potassium Level 2.5 MMOL/L (3.5-5.1) *L Chloride Level 109 MMOL/L (98-107) H Carbon Dioxide Level 25 MMOL/L (21-32) Anion Gap 9 mmol/L (5-15) Blood Urea Nitrogen 7 mg/dL (7-18) Creatinine 0.9 MG/DL (0.55-1.30) Estimat Glomerular Filtration Rate > 60 mL/min (>60) Glucose Level 54 MG/DL (74-106) L Uric Acid 3.2 MG/DL (2.6-7.2) Calcium Level 8.6 MG/DL (8.5-10.1) Phosphorus Level 2.4 MG/DL (2.5-4.9) L Magnesium Level 1.6 MG/DL (1.8-2.4) L Total Bilirubin 0.4 MG/DL (0.2-1.0) Gamma Glutamyl Transpeptidase 67 U/L (5-85) Aspartate Amino Transf (AST/SGOT) 24 U/L (15-37) Alanine Aminotransferase (ALT/SGPT) 29 U/L (12-78) Alkaline Phosphatase 67 U/L (46-116) Total Creatine Kinase 45 U/L (26-308) C-Reactive Protein, Quantitative < 0.4 mg/dL (0.00-0.90) Total Protein 6.2 G/DL (6.4-8.2) L Albumin 3.0 G/DL (3.4-5.0) L Globulin 3.2 g/dL Albumin/Globulin Ratio 0.9 (1.0-2.7) L Thyroid Stimulating Hormone (TSH) 0.785 uiU/mL (0.358-3.740) Urine Color Pale yellow Urine Appearance Clear Urine pH 6 (4.5-8.0) Urine Specific [place] 1.010 (1.005-1.035) Urine Protein Negative (NEGATIVE) Urine Glucose (UA) 3+ (NEGATIVE) H Urine Ketones 1+ (NEGATIVE) H Urine Blood 3+ (NEGATIVE) H Urine Nitrite Negative (NEGATIVE) Urine Bilirubin Negative (NEGATIVE) Urine Urobilinogen Normal MG/DL (0.0-1.0) Urine Leukocyte Esterase Negative (NEGATIVE) Urine RBC 2-4 /HPF (0 - 0) H Urine WBC 0 /HPF (0 - 0) Urine Squamous Epithelial Cells None /LPF (NONE/OCC) Urine Bacteria None /HPF (NONE) Urine Opiates Screen Negative (NEGATIVE) Urine Barbiturates Screen Negative (NEGATIVE) Phencyclidine (PCP) Screen Negative (NEGATIVE) Urine Amphetamines Screen Negative (NEGATIVE) Urine Benzodiazepines Screen Negative (NEGATIVE) Urine Cocaine Screen Negative (NEGATIVE) Urine Marijuana (THC) Screen Negative (NEGATIVE) Microbiology Date/Time Source Procedure Growth Status 01/16/19 17:50 Nasal Nares MRSA Culture - Final NO METHICILLIN RESISTANT STAPH AUREUS... Complete 01/16/19 17:50 Rectum VRE Culture - Final NO VANCOMYCIN RESISTANT ENTEROCOCCUS ... Complete 01/16/19 17:50 Rectum - Final NO CARBAPENEM-RESISTANT ENTEROBACTERI... Complete Objective HEENT: Atraumatic and normocephalic. Anicteric. Pupils are equal, round, and reactive to light and accommodation. Extraocular muscles intact. NECK: JVP less than 5 cm. No carotid bruit. Carotid upstroke is 2+ bilaterally. CARDIOVASCULAR: Normal S1, S2. Regular rate and rhythm. Tachycardic. No murmurs, gallops, or rubs. LUNGS: Clear to auscultation bilaterally. ABDOMEN: Soft, nontender, and nondistended. No hepatosplenomegaly. Positive bowel sounds. EXTREMITIES: No evidence of edema, clubbing, or cyanosis. Drew Medel MD Jan 18, 2019 22:42
[2019-01-19] VITALS: BP 137/97
--- NOTE | 2019-01-19 00:20 | NUR ---
Patient has low grade fever 100.3 F. Ice pack given, will continue to monitor and recheck in an hour.
--- NOTE | 2019-01-19 01:00 | NUR ---
NURSE NOTES: Temperature rechecked 98.7. Patient is stable. No complaint of pain or discomfort noted. Call light is at bedside. Will continue plan of care.
--- NOTE | 2019-01-19 01:30 | NUR ---
HAND-OFF: Report given to Teddy LLANOS.
[2019-01-19 04:00] VITALS: BP 117/79
[2019-01-19] MEDS: NovoLOG Insulin Flexpen SUBQ SCH ×7 (06:30→20:21)
[2019-01-19] MEDS: D5NS 1,000 ML IV SCH (06:30)
--- NOTE | 2019-01-19 06:36 | General Progress Note ---
Assessment/Plan Problem List: (1) DKA (diabetic ketoacidoses) ICD Codes: E11.10 - Type 2 diabetes mellitus with ketoacidosis without coma SNOMED: 448302398, 17866547 (2) Uncontrolled hypertension ICD Codes: I10 - Essential (primary) hypertension SNOMED: 51455941, 46710419 (3) Hypokalemia ICD Codes: E87.6 - Hypokalemia SNOMED: 75740601 Status: progressing Assessment/Plan: DKA resolved am labs pending fasting glucose on lower side - reduce Levemir 20 to 16 units qhs - continue Novolog 4 units ac tid - continue NISS ac / hs Subjective Allergies: Coded Allergies: No Known Allergies (Unverified , 01/16/19) All Systems: reviewed and negative except above Subjective events noted hypoglycemia this morning Item Value Date Time Bedside Blood Glucose 54 mg/dl L 01/19/19 0630 Bedside Blood Glucose 165 mg/dl H 01/18/19 2039 Bedside Blood Glucose 123 mg/dl H 01/18/19 1709 Bedside Blood Glucose 119 mg/dl 01/18/19 1206 Objective Last 24 Hour Vital Signs Date Time Temp Pulse Resp B/P (MAP) Pulse Ox O2 Delivery O2 Flow Rate FiO2 01/19/19 04:00 98.4 74 20 117/79 (92) 98 01/19/19 01:00 98.7 01/19/19 00:00 100.3 81 20 137/97 (110) 98 01/18/19 21:00 Room Air 01/18/19 20:36 78 143/78 01/18/19 20:00 98.2 78 20 143/78 (99) 99 01/18/19 18:30 131/90 01/18/19 16:00 98.7 81 19 131/90 (104) 98 01/18/19 12:00 97.8 76 17 143/91 (108) 98 01/18/19 10:36 105 156/102 01/18/19 09:01 156/102 Intake and Output 01/18/19 01/19/19 19:00 07:00 Intake Total 2345.0 ml Output Total 2500 ml Balance -155.0 ml Intake Oral 480 ml IV Total 1865.0 ml Output Urine Total 2500 ml # Voids 2 Laboratory Tests 01/18/19 11:10: Urine Color Pale yellow, Urine Appearance Clear, Urine pH 6, Urine Specific [place] 1.010, Urine Protein Negative, Urine Glucose (UA) 3+H, Urine Ketones 1+H , Urine Blood 3+H, Urine Nitrite Negative, Urine Bilirubin Negative, Urine Urobilinogen Normal, Urine Leukocyte Esterase Negative, Urine RBC 2-4H, Urine WBC 0, Urine Squamous Epithelial Cells None, Urine Bacteria None, Urine Opiates Screen Negative, Urine Barbiturates Screen Negative, Phencyclidine (PCP) Screen Negative, Urine Amphetamines Screen Negative, Urine Benzodiazepines Screen Negative, Urine Cocaine Screen Negative, Urine Marijuana (THC) Screen Negative 01/19/19 04:50: Sodium Level [Pending], Potassium Level [Pending], Chloride Level [Pending], Carbon Dioxide Level [Pending], Blood Urea Nitrogen [Pending], Creatinine [ Pending], Estimat Glomerular Filtration Rate [Pending], Glucose Level [Pending] , Hemoglobin A1c [Pending], Uric Acid [Pending], Calcium Level [Pending], Phosphorus Level [Pending], Magnesium Level [Pending], Total Bilirubin [Pending] , Aspartate Amino Transf (AST/SGOT) [Pending], Alanine Aminotransferase (ALT/ SGPT) [Pending], Alkaline Phosphatase [Pending], Total Protein [Pending], Albumin [Pending], Globulin [Pending] Height (Feet): 5 Height (Inches): 7.00 Weight (Pounds): 168 General Appearance: no apparent distress Neck: normal alignment Cardiovascular: normal rate Respiratory/Chest: lungs clear Abdomen: normal bowel sounds Pelvis: normal external exam Objective Current Medications Medications (Trade) Dose Ordered Sig/Moise Route PRN Reason Start Time Stop Time Status Last Admin Dose Admin Acetaminophen (Tylenol) 650 mg Q6H PRN ORAL Mild Pain/Temp > 100.5 01/18/19 00:15 02/15/19 18:14 Atorvastatin Calcium (Lipitor) 20 mg BEDTIME ORAL 01/18/19 21:00 02/17/19 20:59 01/18/19 20:36 Dextrose (Dextrose 50%) 25 ml Q30M PRN IV Hypoglycemia 01/18/19 19:00 02/17/19 18:59 Dextrose (Dextrose 50%) 50 ml Q30M PRN IV Hypoglycemia 01/18/19 19:00 02/17/19 18:59 01/19/19 06:29 Dextrose/Sodium Chloride 1,000 ml @ 75 mls/hr [id number] IV 01/17/19 23:45 02/15/19 14:29 01/19/19 06:30 Diphenhydramine HCl (Benadryl) 25 mg Q6H PRN IVP Itching 01/18/19 00:15 02/15/19 18:14 Docusate Sodium (Colace) 100 mg THREE TIMES A DAY ORAL 01/18/19 09:00 02/16/19 17:59 01/18/19 18:30 Heparin Sodium (Porcine) (Heparin 5000 units/ml) 5,000 units EVERY 12 HOURS SUBQ 01/18/19 09:00 02/15/19 20:59 01/18/19 20:38 Hydromorphone HCl (Dilaudid) 0.5 mg Q3H PRN IVP Severe Pain (Pain Scale 7-10) 01/18/19 00:15 01/23/19 18:14 01/18/19 21:39 Insulin Aspart (NovoLOG) BEFORE MEALS AND HS SUBQ 01/18/19 06:30 02/16/19 16:29 01/18/19 20:39 Insulin Aspart (NovoLOG) 4 units NOVOTIAC SUBQ 01/19/19 06:30 02/18/19 06:29 Insulin Detemir (Levemir) 20 units BEDTIME SUBQ 01/18/19 21:00 02/16/19 20:59 01/18/19 20:39 Lisinopril (Zestril) 10 mg BID ORAL 01/18/19 18:00 02/16/19 14:29 01/18/19 18:30 Metoprolol Tartrate (Lopressor) 12.5 mg Q12HR ORAL 01/18/19 09:15 02/17/19 09:14 01/18/19 20:36 Ondansetron HCl (Zofran) 4 mg Q6H PRN IVP Nausea & Vomiting 01/18/19 00:00 02/15/19 17:59 Pantoprazole (Protonix) 40 mg EVERY 12 HOURS ORAL 01/18/19 09:00 02/16/19 20:59 01/18/19 20:37 Potassium Chloride (K-Dur) 40 meq TID ORAL 01/18/19 13:00 01/19/19 09:01 01/18/19 18:31 Andrei Collins MD Jan 19, 2019 06:36
[2019-01-19 06:46] LABS: ALANINE AMINOTRANSFERASE 27 U/L (12-78); ALBUMIN 2.7 G/DL (3.4-5.0); ALBUMIN/GLOBULIN RATIO 0.9 (1.0-2.7); ALKALINE PHOSPHATASE 63 U/L (46-116); ANION GAP 4 mmol/L (5-15); ASPARTATE AMINO TRANSFERASE 28 U/L (15-37); BILIRUBIN,TOTAL 0.6 MG/DL (0.2-1.0); BLOOD UREA NITROGEN 6 mg/dL (7-18); CALCIUM 8.2 MG/DL (8.5-10.1); CARBON DIOXIDE 31 MMOL/L (21-32); CHLORIDE 106 MMOL/L (98-107); CREATININE 0.7 MG/DL (0.55-1.30); PHOSPHORUS 2.5 MG/DL (2.5-4.9); SODIUM 141 MMOL/L (136-145)
[2019-01-19 06:54] LABS: POTASSIUM 2.6 MMOL/L (3.5-5.1)
--- NOTE | 2019-01-19 07:29 | NUR ---
HAND-OFF: Report given to VIET Sawyer. Endorsed to follow up no potassium level.
--- NOTE | 2019-01-19 07:55 | NUR ---
NURSE NOTES: Received patient on bed, awake. Both IV sites intact and patent. Bed in low and locked position, call light in reach. No signs of respiratory distress. Room board updated, will continue to monitor.
--- NOTE | 2019-01-19 07:58 | NUR ---
NURSE NOTES: Patient had potassium level of 2.6 this morning. Per protocol contacted MD Moss who stated to notify MD Pabon. Message left for MD Pabon.
[2019-01-19 08:00] VITALS: BP 140/99
[2019-01-19] MEDS: Lisinopril 10mg tab ORAL SCH ×2 (08:48→17:26)
[2019-01-19] MEDS: Metoprolol Tartrate 12.5mg TAB ORAL SCH ×2 (08:49→20:29)
[2019-01-19] MEDS: Docusate 100mg cap ORAL SCH ×3 (08:49→17:24)
[2019-01-19] MEDS: Heparin 5000 units/ml inj SUBQ SCH ×2 (08:50→20:31)
[2019-01-19] MEDS ORDERED: Sodium Chloride for KCL Premix X 4hrs IV SCH (10:00)
--- NOTE | 2019-01-19 11:20 | NUR ---
*-* INSURANCE *-* ALL CLINICALS AND REVIEWS HAVE BEEN FAXED TO: [facility] SPOKE TO: JOAN ROSAS. WILL BE TRACKING SEND CLINICALS TO [phone]
[2019-01-19] MEDS: Hydromorphone 0.5mg/0.5ml inj IVP PRN (11:59)
[2019-01-19 12:00] VITALS: BP 127/86
--- NOTE | 2019-01-19 12:09 | Nephrology Progress Note ---
Assessment/Plan Problem List: (1) DKA (diabetic ketoacidoses) (2) Uncontrolled hypertension (3) Hypokalemia Assessment DM DKA Low K and Phos HTN OOC Plan DC IV fluid BS and BP management urine tox screen K and Mag and Phos supplement as needed per orders Subjective ROS Limited/Unobtainable: No Objective Objective Last 24 Hour Vital Signs Date Time Temp Pulse Resp B/P (MAP) Pulse Ox O2 Delivery O2 Flow Rate FiO2 01/19/19 09:00 Room Air 01/19/19 08:49 86 140/99 01/19/19 08:48 140/99 01/19/19 08:00 97.9 86 20 140/99 (113) 98 01/19/19 04:00 98.4 74 20 117/79 (92) 98 01/19/19 01:00 98.7 01/19/19 00:00 100.3 81 20 137/97 (110) 98 01/18/19 21:00 Room Air 01/18/19 20:36 78 143/78 01/18/19 20:00 98.2 78 20 143/78 (99) 99 01/18/19 18:30 131/90 01/18/19 16:00 98.7 81 19 131/90 (104) 98 Intake and Output 01/18/19 01/19/19 19:00 07:00 Intake Total 2420.0 ml 700 ml Output Total 2500 ml Balance -80.0 ml 700 ml Intake Oral 480 ml IV Total 1940.0 ml 700 ml Output Urine Total 2500 ml # Voids 2 Laboratory Tests 01/19/19 04:50: Sodium Level 141, Potassium Level 2.6*L, Chloride Level 106, Carbon Dioxide Level 31, Anion Gap 4L, Blood Urea Nitrogen 6L, Creatinine 0.7, Estimat Glomerular Filtration Rate > 60, Glucose Level 55L, Hemoglobin A1c 12.3H, Uric Acid 2.1L, Calcium Level 8.2L, Phosphorus Level 2.5, Magnesium Level 2.0, Total Bilirubin 0.6, Aspartate Amino Transf (AST/SGOT) 28, Alanine Aminotransferase ( ALT/SGPT) 27, Alkaline Phosphatase 63, Total Protein 5.6L, Albumin 2.7L, Globulin 2.9, Albumin/Globulin Ratio 0.9L Height (Feet): 5 Height (Inches): 7.00 Weight (Pounds): 122 General Appearance: no apparent distress Respiratory/Chest: lungs clear Abdomen: soft Objective no change Nas Pabon MD Jan 19, 2019 12:09
[2019-01-19] MEDS ORDERED: traMADol 50mg tab ORAL PRN (12:12)
--- NOTE | 2019-01-19 12:52 | Infectious Diseases Prog Note ---
Assessment/Plan Assessment/Plan IMPRESSION: 1. Systemic inflammatory response syndrome, likely non-infectious in origin. 2. Diabetic ketoacidosis. 3. Diabetes type 1. 4. Hypertension. 5. Hypokalemia RECOMMENDATION: We will observe off antibiotics. Subjective ROS Limited/Unobtainable: No Constitutional: Reports: no symptoms Cardiovascular: Reports: no symptoms Gastrointestinal/Abdominal: Reports: no symptoms Genitourinary: Reports: no symptoms Neurologic: Reports: no symptoms Allergies: Coded Allergies: No Known Allergies (Unverified , 01/16/19) Objective Vital Signs Last 24 Hour Vital Signs Date Time Temp Pulse Resp B/P (MAP) Pulse Ox O2 Delivery O2 Flow Rate FiO2 01/19/19 09:00 Room Air 01/19/19 08:49 86 140/99 01/19/19 08:48 140/99 01/19/19 08:00 97.9 86 20 140/99 (113) 98 01/19/19 04:00 98.4 74 20 117/79 (92) 98 01/19/19 01:00 98.7 01/19/19 00:00 100.3 81 20 137/97 (110) 98 01/18/19 21:00 Room Air 01/18/19 20:36 78 143/78 01/18/19 20:00 98.2 78 20 143/78 (99) 99 01/18/19 18:30 131/90 01/18/19 16:00 98.7 81 19 131/90 (104) 98 Height (Feet): 5 Height (Inches): 7.00 Weight (Pounds): 122 General Appearance: no acute distress HEENT: mucous membranes moist Respiratory/Chest: lungs clear Cardiovascular: normal rate Abdomen: soft, non tender Extremities: no edema Neurologic/Psychiatric: alert, oriented x 3, responsive Microbiology Date/Time Source Procedure Growth Status 01/16/19 17:50 Nasal Nares MRSA Culture - Final NO METHICILLIN RESISTANT STAPH AUREUS... Complete 01/16/19 17:50 Rectum VRE Culture - Final NO VANCOMYCIN RESISTANT ENTEROCOCCUS ... Complete 01/16/19 17:50 Rectum - Final NO CARBAPENEM-RESISTANT ENTEROBACTERI... Complete Laboratory Tests Test 01/19/19 04:50 Sodium Level 141 MMOL/L (136-145) Potassium Level 2.6 MMOL/L (3.5-5.1) *L Chloride Level 106 MMOL/L (98-107) Carbon Dioxide Level 31 MMOL/L (21-32) Anion Gap 4 mmol/L (5-15) L Blood Urea Nitrogen 6 mg/dL (7-18) L Creatinine 0.7 MG/DL (0.55-1.30) Estimat Glomerular Filtration Rate > 60 mL/min (>60) Glucose Level 55 MG/DL (74-106) L Hemoglobin A1c 12.3 % (4.3-6.0) H Uric Acid 2.1 MG/DL (2.6-7.2) L Calcium Level 8.2 MG/DL (8.5-10.1) L Phosphorus Level 2.5 MG/DL (2.5-4.9) Magnesium Level 2.0 MG/DL (1.8-2.4) Total Bilirubin 0.6 MG/DL (0.2-1.0) Aspartate Amino Transf (AST/SGOT) 28 U/L (15-37) Alanine Aminotransferase (ALT/SGPT) 27 U/L (12-78) Alkaline Phosphatase 63 U/L (46-116) Total Protein 5.6 G/DL (6.4-8.2) L Albumin 2.7 G/DL (3.4-5.0) L Globulin 2.9 g/dL Albumin/Globulin Ratio 0.9 (1.0-2.7) L Current Medications Medications (Trade) Dose Ordered Sig/Moise Route PRN Reason Start Time Stop Time Status Last Admin Dose Admin Acetaminophen (Tylenol) 650 mg Q6H PRN ORAL Mild Pain/Temp > 100.5 01/18/19 00:15 02/15/19 18:14 Atorvastatin Calcium (Lipitor) 20 mg BEDTIME ORAL 01/18/19 21:00 02/17/19 20:59 01/18/19 20:36 Dextrose (Dextrose 50%) 25 ml Q30M PRN IV Hypoglycemia 01/18/19 19:00 02/17/19 18:59 Dextrose (Dextrose 50%) 50 ml Q30M PRN IV Hypoglycemia 01/18/19 19:00 02/17/19 18:59 01/19/19 06:29 Diphenhydramine HCl (Benadryl) 25 mg Q6H PRN IVP Itching 01/18/19 00:15 02/15/19 18:14 Docusate Sodium (Colace) 100 mg THREE TIMES A DAY ORAL 01/18/19 09:00 02/16/19 17:59 01/19/19 08:49 Heparin Sodium (Porcine) (Heparin 5000 units/ml) 5,000 units EVERY 12 HOURS SUBQ 01/18/19 09:00 02/15/19 20:59 01/19/19 08:50 Insulin Aspart (NovoLOG) BEFORE MEALS AND HS SUBQ 01/18/19 06:30 02/16/19 16:29 01/19/19 12:06 Insulin Aspart (NovoLOG) 4 units NOVOTIAC SUBQ 01/19/19 06:30 02/18/19 06:29 01/19/19 12:09 Insulin Detemir (Levemir) 16 units BEDTIME SUBQ 01/19/19 21:00 02/16/19 20:59 Lisinopril (Zestril) 10 mg BID ORAL 01/18/19 18:00 02/16/19 14:29 01/19/19 08:48 Metoprolol Tartrate (Lopressor) 12.5 mg Q12HR ORAL 01/18/19 09:15 02/17/19 09:14 01/19/19 08:49 Ondansetron HCl (Zofran) 4 mg Q6H PRN IVP Nausea & Vomiting 01/18/19 00:00 02/15/19 17:59 Pantoprazole (Protonix) 40 mg EVERY 12 HOURS ORAL 01/18/19 09:00 02/16/19 20:59 01/19/19 08:48 Potassium Chloride 100 ml @ 100 mls/hr Q1HR IVPB 01/19/19 10:00 01/19/19 13:59 01/19/19 11:24 Potassium Chloride (K-Dur) 40 meq THREE TIMES A DAY ORAL 01/19/19 10:00 02/18/19 09:59 01/19/19 11:22 Sodium Chloride 400 ml @ 100 mls/hr Q4H IV 01/19/19 10:00 01/19/19 13:59 01/19/19 11:23 Tramadol HCl (Ultram) 50 mg Q6H PRN ORAL pain 6 and above 01/19/19 12:12 01/26/19 12:11 Donnie Mckeon MD 7, 2019 12:52
--- NOTE | 2019-01-19 15:14 | NUR ---
[employer] ARTIFICIAL BREAST SI:DKA . HYPOKALEMIA VS: BP 140/99, P 74, T 98.4, RR 20, SpO2 98 K 2.6, BUN 6, A1C 12.3 IS:POTASSIUM CHLORIDE 100ml IVPB ULTRAM 50mg K-DUR 40meq NOVOLOG SUBQ DILAUDID 0.5mg NS x400ml IV LOPRESSOR 12.5mg D5O% 50ml IV MED/SURG STATUS
[2019-01-19 16:00] VITALS: BP 128/89
--- NOTE | 2019-01-19 17:48 | Cardiology Report ---
APPROVED REPORT EKG Measurement Heart [id number] Sinus tachycardia Nonspecific T wave abnormality Abnormal ECG
--- NOTE | 2019-01-19 19:39 | NUR ---
HAND-OFF: Report given to VIET Joseph.
--- NOTE | 2019-01-19 19:40 | Pulmonolgy Critical Care Note ---
Critical Care - Asmt/Plan Assessment/Plan: Pulmonary Note HPI Patient is a 28 year old man with history of IDDM, HL and HTN admitted after complaining of one day of nausea, vomiting and abdominal pain. Denies recent illness. Denies fever or chills. No cough. He states that he has been using his insulin. He has no other complaints. Much improved, hypglycemia this AM Gap closed Allergies: No Known Allergies Past Medical History: IDDM, HTN, HL Social History: Denies: smoking, alcohol use, drug use All Other Systems: negative except mentioned in HPI Physical Exam Vital Signs Noted. General Appearance: no apparent distress, alert, GCS 15, non-toxic Head: normocephalic, atraumatic Eyes: bilateral eye normal inspection, bilateral eye PERRL ENT: hearing grossly normal, normal pharynx, no angioedema, normal voice Neck: full range of motion, supple/symm/no masses Respiratory: chest non-tender, lungs clear, normal breath sounds, no respiratory distress, no retraction, no accessory muscle use, speaking full sentences Cardiovascular: HS1, HS2 normal, RRR, no edema, tachycardia Gastrointestinal: normal bowel sounds, soft, non-distended, no guarding, no rebound, tenderness - mild tenderness Rectal: deferred Musculoskeletal: back normal, gait/station normal, normal range of motion, non- tender Neurologic: alert, oriented x3, responsive, motor strength/tone normal, sensory intact, speech normal Skin: normal color, no rash, warm/dry, well hydrated Impression: Primary Impression: Diabetic ketoacidoses, h/o IDDM Hypertension Hyperlipidemia Plan Insulin - Levamir per Endocrine PPX Monitor labs CXR PRN O2 Protonix Lipase Laboratory Tests Test 01/16/19 11:07 White Blood Count 9.7 K/UL (4.8-10.8) Red Blood Count 4.70 M/UL (4.70-6.10) Hemoglobin 14.2 G/DL (14.2-18.0) Hematocrit 43.4 % (42.0-52.0) Mean Corpuscular Volume 93 FL (80-99) Mean Corpuscular Hemoglobin 30.3 PG (27.0-31.0) Mean Corpuscular Hemoglobin Concent 32.7 G/DL (32.0-36.0) Red Cell Distribution Width 11.9 % (11.6-14.8) Platelet Count 217 K/UL (150-450) Mean Platelet Volume 9.6 FL (6.5-10.1) Neutrophils (%) (Auto) 81.5 % (45.0-75.0) H Lymphocytes (%) (Auto) 14.2 % (20.0-45.0) L Monocytes (%) (Auto) 3.6 % (1.0-10.0) Eosinophils (%) (Auto) 0.0 % (0.0-3.0) Basophils (%) (Auto) 0.6 % (0.0-2.0) Urine Color Pale yellow Urine Appearance Clear Urine pH 6 (4.5-8.0) Urine Specific [place] 1.020 (1.005-1.035) Urine Protein 1+ (NEGATIVE) H Urine Glucose (UA) 4+ (NEGATIVE) H Urine Ketones 4+ (NEGATIVE) H Urine Blood 2+ (NEGATIVE) H Urine Nitrite Negative (NEGATIVE) Urine Bilirubin Negative (NEGATIVE) Urine Urobilinogen Normal MG/DL (0.0-1.0) Urine Leukocyte Esterase Negative (NEGATIVE) Urine RBC 0-2 /HPF (0 - 0) H Urine WBC 0-2 /HPF (0 - 0) Urine Squamous Epithelial Cells Occasional /LPF Urine Bacteria Occasional /HPF (NONE) Sodium Level 138 MMOL/L (136-145) Potassium Level 4.8 MMOL/L (3.5-5.1) Chloride Level 99 MMOL/L (98-107) Carbon Dioxide Level 11 MMOL/L (21-32) L Anion Gap 28 mmol/L (5-15) H Blood Urea Nitrogen 19 mg/dL (7-18) H Creatinine 1.3 MG/DL (0.55-1.30) Estimate Glomerular Filtration Rate > 60 mL/min (>60) Glucose Level 555 MG/DL (74-106) *H Calcium Level 9.0 MG/DL (8.5-10.1) Magnesium Level 1.8 MG/DL (1.8-2.4) Total Bilirubin 0.9 MG/DL (0.2-1.0) Aspartate Amino Transferase (AST) 21 U/L (15-37) Alanine Aminotransferase (ALT) 33 U/L (12-78) Alkaline Phosphatase 92 U/L (46-116) Total Protein 7.4 G/DL (6.4-8.2) Albumin 3.9 G/DL (3.4-5.0) Globulin 3.5 g/dL Albumin/Globulin Ratio 1.1 (1.0-2.7) Acetone Level Positive-moderate (NEGATIVE) EKG: Rate: tachycardiac Rhythm: other - S.tachycardia ST Segments: no acute changes Critical Care - Objective Last 24 Hour Vital Signs Date Time Temp Pulse Resp B/P (MAP) Pulse Ox O2 Delivery O2 Flow Rate FiO2 01/19/19 17:26 128/89 01/19/19 16:00 98.0 88 18 128/89 (102) 99 01/19/19 12:00 97.9 88 18 127/86 (100) 98 01/19/19 09:00 Room Air 01/19/19 08:49 86 140/99 01/19/19 08:48 140/99 01/19/19 08:00 97.9 86 20 140/99 (113) 98 01/19/19 04:00 98.4 74 20 117/79 (92) 98 01/19/19 01:00 98.7 01/19/19 00:00 100.3 81 20 137/97 (110) 98 01/18/19 21:00 Room Air 01/18/19 20:36 78 143/78 01/18/19 20:00 98.2 78 20 143/78 (99) 99 Accucheck: 96 Critical Care - Subjective ROS Limited/Unobtainable: No Sputum Amount: None I&O: Intake and Output 01/18/19 01/19/19 19:00 07:00 Intake Total 2420.0 ml 700 ml Output Total 2500 ml Balance -80.0 ml 700 ml Intake Oral 480 ml IV Total 1940.0 ml 700 ml Output Urine Total 2500 ml # Voids 2 Silverio Bhatt MD Jan 19, 2019 19:40
--- NOTE | 2019-01-19 19:50 | NUR ---
NURSE NOTES: Pt is in bed, awake and alert. No acute distress noted. Pt has two IV sites left AC and Right forearm, both Iv sites look asymptomatic and patent. Blood sugar will be checked.Bed locked low in place, side rails up and call light within reach. Pt will be monitored.
[2019-01-19 20:00] VITALS: BP 141/95
[2019-01-19] MEDS: Atorvastatin 20mg tab ORAL SCH (20:29)
[2019-01-19] MEDS ORDERED: Levemir Flexpen SUBQ SCH (21:00)
--- NOTE | 2019-01-19 22:26 | General Progress Note ---
Assessment/Plan Problem List: (1) Uncontrolled hypertension ICD Codes: I10 - Essential (primary) hypertension SNOMED: 08801022, 40178785 (2) DKA (diabetic ketoacidoses) ICD Codes: E11.10 - Type 2 diabetes mellitus with ketoacidosis without coma SNOMED: 340708152, 69731088 (3) Hypokalemia ICD Codes: E87.6 - Hypokalemia SNOMED: 63533500 Status: progressing Assessment/Plan: dka resolved lyte abnormality is improving low k.replacement per renal no abdominal pain htn Subjective ROS Limited/Unobtainable: Yes Allergies: Coded Allergies: No Known Allergies (Unverified , 01/16/19) Objective Last 24 Hour Vital Signs Date Time Temp Pulse Resp B/P (MAP) Pulse Ox O2 Delivery O2 Flow Rate FiO2 01/19/19 21:00 Room Air 01/19/19 20:29 87 141/95 01/19/19 20:00 98.2 87 18 141/95 (110) 100 01/19/19 17:26 128/89 01/19/19 16:00 98.0 88 18 128/89 (102) 99 01/19/19 12:00 97.9 88 18 127/86 (100) 98 01/19/19 09:00 Room Air 01/19/19 08:49 86 140/99 01/19/19 08:48 140/99 01/19/19 08:00 97.9 86 20 140/99 (113) 98 01/19/19 04:00 98.4 74 20 117/79 (92) 98 01/19/19 01:00 98.7 01/19/19 00:00 100.3 81 20 137/97 (110) 98 Intake and Output 01/18/19 01/19/19 18:59 06:59 Intake Total 2345.0 ml 775 ml Output Total 2500 ml Balance -155.0 ml 775 ml Intake Oral 480 ml IV Total 1865.0 ml 775 ml Output Urine Total 2500 ml # Voids 2 Laboratory Tests 01/19/19 04:50: Sodium Level 141, Potassium Level 2.6*L, Chloride Level 106, Carbon Dioxide Level 31, Anion Gap 4L, Blood Urea Nitrogen 6L, Creatinine 0.7, Estimat Glomerular Filtration Rate > 60, Glucose Level 55L, Hemoglobin A1c 12.3H, Uric Acid 2.1L, Calcium Level 8.2L, Phosphorus Level 2.5, Magnesium Level 2.0, Total Bilirubin 0.6, Aspartate Amino Transf (AST/SGOT) 28, Alanine Aminotransferase ( ALT/SGPT) 27, Alkaline Phosphatase 63, Total Protein 5.6L, Albumin 2.7L, Globulin 2.9, Albumin/Globulin Ratio 0.9L Height (Feet): 5 Height (Inches): 7.00 Weight (Pounds): 122 Cardiovascular: normal rate Respiratory/Chest: lungs clear Abdomen: soft Bria Moss MD Jan 19, 2019 22:26
--- NOTE | 2019-01-20 01:38 | NUR ---
NURSE NOTES: Pt is in bed, asleep. No acute distress noted.
[2019-01-20 04:00] VITALS: BP 121/81
--- NOTE | 2019-01-20 06:30 | NUR ---
NURSE NOTES: Blood sugar 129.
[2019-01-20] MEDS: NovoLOG Insulin Flexpen SUBQ SCH ×4 (06:44→12:04)
--- NOTE | 2019-01-20 07:06 | NUR ---
HAND-OFF: Report given to Nita Fitch RN.
[2019-01-20 07:19] LABS: BASOPHILS % (AUTO) 1.3 % (0.0-2.0); HEMATOCRIT 38.1 % (42.0-52.0); LYMPHOCYTES % (AUTO) 54.8 % (20.0-45.0); MEAN CORPUSCULAR VOLUME 89 FL (80-99); MONOCYTES % (AUTO) 7.9 % (1.0-10.0); NEUTROPHILS % (AUTO) 33.1 % (45.0-75.0); PLATELET COUNT 149 K/UL (150-450); RED CELL DISTRIBUTION WIDTH 11.3 % (11.6-14.8); WHITE BLOOD COUNT 5.3 K/UL (4.8-10.8)
--- NOTE | 2019-01-20 07:48 | NUR ---
NURSE NOTES: Patient alert x4, on room air, no sing of distress and shortness of breath; no sign of chest pain; IV LAC flushes well; side rails up x2, breaks engaged, side rails up x2. call light within reach; will keep monitoring.
[2019-01-20 08:00] VITALS: BP 123/77
[2019-01-20] MEDS: Docusate 100mg cap ORAL SCH ×2 (08:59→12:05)
[2019-01-20] MEDS: Heparin 5000 units/ml inj SUBQ SCH (09:00)
[2019-01-20] MEDS: Lisinopril 10mg tab ORAL SCH (09:00)
[2019-01-20] MEDS: Metoprolol Tartrate 12.5mg TAB ORAL SCH (09:00)
[2019-01-20 09:20] LABS: ALANINE AMINOTRANSFERASE 30 U/L (12-78); ALBUMIN/GLOBULIN RATIO 0.9 (1.0-2.7); ALKALINE PHOSPHATASE 72 U/L (46-116); ANION GAP 5 mmol/L (5-15); ASPARTATE AMINO TRANSFERASE 21 U/L (15-37); BILIRUBIN,TOTAL 0.5 MG/DL (0.2-1.0); BLOOD UREA NITROGEN 8 mg/dL (7-18); CARBON DIOXIDE 30 MMOL/L (21-32); CHLORIDE 104 MMOL/L (98-107); CREATININE 0.7 MG/DL (0.55-1.30); PHOSPHORUS 3.3 MG/DL (2.5-4.9); POTASSIUM 3.4 MMOL/L (3.5-5.1); SODIUM 139 MMOL/L (136-145)
--- NOTE | 2019-01-20 11:19 | General Progress Note ---
Assessment/Plan Problem List: (1) DKA (diabetic ketoacidoses) ICD Codes: E11.10 - Type 2 diabetes mellitus with ketoacidosis without coma SNOMED: 828055907, 09805222 (2) Uncontrolled hypertension ICD Codes: I10 - Essential (primary) hypertension SNOMED: 52180100, 80398214 (3) Hypokalemia ICD Codes: E87.6 - Hypokalemia SNOMED: 97840650 Status: progressing Assessment/Plan: more stable glucose values - continue Levemir 16 units qhs - continue Novolog 4 units ac tid - continue NISS ac / hs he is stable for DC home from diabetes stand point he has enough supply of insulin at home - no need for Rx Subjective Allergies: Coded Allergies: No Known Allergies (Unverified , 01/16/19) All Systems: reviewed and negative except above Subjective events noted glucose values improved Item Value Date Time Bedside Blood Glucose 129 mg/dl H 01/20/19 0644 Bedside Blood Glucose 82 mg/dl 01/19/19 2100 Bedside Blood Glucose 96 mg/dl 01/19/19 1728 Bedside Blood Glucose 196 mg/dl H 01/19/19 1209 Objective Last 24 Hour Vital Signs Date Time Temp Pulse Resp B/P (MAP) Pulse Ox O2 Delivery O2 Flow Rate FiO2 01/20/19 09:00 Room Air 01/20/19 09:00 123/77 01/20/19 09:00 81 123/77 01/20/19 08:00 97.9 81 18 123/77 (92) 98 01/20/19 04:00 97.7 78 18 121/81 (94) 98 01/19/19 21:00 Room Air 01/19/19 20:29 87 141/95 01/19/19 20:00 98.2 87 18 141/95 (110) 100 01/19/19 17:26 128/89 01/19/19 16:00 98.0 88 18 128/89 (102) 99 01/19/19 12:00 97.9 88 18 127/86 (100) 98 Intake and Output 01/19/19 01/20/19 19:00 07:00 Intake Total 1845 ml Balance 1845 ml Intake Oral 1470 ml IV Total 375 ml # Voids 3 Laboratory Tests 01/20/19 06:30: White Blood Count 5.3, Red Blood Count 4.30L, Hemoglobin 13.0L, Hematocrit 38.1L , Mean Corpuscular Volume 89, Mean Corpuscular Hemoglobin 30.2, Mean Corpuscular Hemoglobin Concent 34.1, Red Cell Distribution Width 11.3L, Platelet Count 149L, Mean Platelet Volume 8.7, Neutrophils (%) (Auto) 33.1L, Lymphocytes (%) (Auto) 54.8H, Monocytes (%) (Auto) 7.9, Eosinophils (%) (Auto) 3.0, Basophils (%) (Auto) 1.3, Sodium Level 139, Potassium Level 3.4L, Chloride Level 104, Carbon Dioxide Level 30, Anion Gap 5, Blood Urea Nitrogen 8, Creatinine 0.7, Estimat Glomerular Filtration Rate > 60, Glucose Level 137H, Calcium Level 9.0, Phosphorus Level 3.3, Magnesium Level 1.9, Total Bilirubin 0.5, Aspartate Amino Transf (AST/SGOT) 21, Alanine Aminotransferase (ALT/SGPT) 30, Alkaline Phosphatase 72, Total Protein 6.2L, Albumin 3.0L, Globulin 3.2, Albumin/Globulin Ratio 0.9L Height (Feet): 5 Height (Inches): 7.00 Weight (Pounds): 118 General Appearance: no apparent distress Neck: normal alignment Cardiovascular: normal rate Respiratory/Chest: lungs clear Abdomen: normal bowel sounds Pelvis: normal external exam Objective Current Medications Medications (Trade) Dose Ordered Sig/Moise Route PRN Reason Start Time Stop Time Status Last Admin Dose Admin Acetaminophen (Tylenol) 650 mg Q6H PRN ORAL Mild Pain/Temp > 100.5 01/18/19 00:15 02/15/19 18:14 Atorvastatin Calcium (Lipitor) 20 mg BEDTIME ORAL 01/18/19 21:00 02/17/19 20:59 01/19/19 20:29 Dextrose (Dextrose 50%) 25 ml Q30M PRN IV Hypoglycemia 01/18/19 19:00 02/17/19 18:59 Dextrose (Dextrose 50%) 50 ml Q30M PRN IV Hypoglycemia 01/18/19 19:00 02/17/19 18:59 01/19/19 06:29 Docusate Sodium (Colace) 100 mg THREE TIMES A DAY ORAL 01/18/19 09:00 02/16/19 17:59 01/20/19 08:59 Heparin Sodium (Porcine) (Heparin 5000 units/ml) 5,000 units EVERY 12 HOURS SUBQ 01/18/19 09:00 02/15/19 20:59 01/19/19 20:31 Insulin Aspart (NovoLOG) BEFORE MEALS AND HS SUBQ 01/18/19 06:30 02/16/19 16:29 01/20/19 06:44 Insulin Aspart (NovoLOG) 4 units NOVOTIAC SUBQ 01/19/19 06:30 02/18/19 06:29 01/20/19 06:44 Insulin Detemir (Levemir) 16 units BEDTIME SUBQ 01/19/19 21:00 02/16/19 20:59 01/19/19 20:31 Lisinopril (Zestril) 10 mg BID ORAL 01/18/19 18:00 02/16/19 14:29 01/20/19 09:00 Metoprolol Tartrate (Lopressor) 12.5 mg Q12HR ORAL 01/18/19 09:15 02/17/19 09:14 01/20/19 09:00 Ondansetron HCl (Zofran) 4 mg Q6H PRN IVP Nausea & Vomiting 01/18/19 00:00 02/15/19 17:59 Pantoprazole (Protonix) 40 mg EVERY 12 HOURS ORAL 01/18/19 09:00 02/16/19 20:59 01/20/19 09:00 Potassium Chloride (K-Dur) 40 meq BID ORAL 01/20/19 18:00 02/18/19 09:59 Tramadol HCl (Ultram) 50 mg Q6H PRN ORAL pain 6 and above 01/19/19 12:12 01/26/19 12:11 01/19/19 13:32 Andrei Collins MD Jan 20, 2019 11:18
--- NOTE | 2019-01-20 11:53 | Nephrology Progress Note ---
Assessment/Plan Problem List: (1) DKA (diabetic ketoacidoses) (2) Uncontrolled hypertension (3) Hypokalemia Assessment DM DKA Low K and Phos HTN OOC Plan DC IV fluid- BS and BP management urine tox screen Negative K and Mag and Phos supplement as needed per orders OK to DC from renal stand Subjective ROS Limited/Unobtainable: No Objective Objective Last 24 Hour Vital Signs Date Time Temp Pulse Resp B/P (MAP) Pulse Ox O2 Delivery O2 Flow Rate FiO2 01/20/19 09:00 Room Air 01/20/19 09:00 123/77 01/20/19 09:00 81 123/77 01/20/19 08:00 97.9 81 18 123/77 (92) 98 01/20/19 04:00 97.7 78 18 121/81 (94) 98 01/19/19 21:00 Room Air 01/19/19 20:29 87 141/95 01/19/19 20:00 98.2 87 18 141/95 (110) 100 01/19/19 17:26 128/89 01/19/19 16:00 98.0 88 18 128/89 (102) 99 01/19/19 12:00 97.9 88 18 127/86 (100) 98 Intake and Output 01/19/19 01/20/19 19:00 07:00 Intake Total 1845 ml Balance 1845 ml Intake Oral 1470 ml IV Total 375 ml # Voids 3 Current Medications Medications (Trade) Dose Ordered Sig/Moise Route PRN Reason Start Time Stop Time Status Last Admin Dose Admin Acetaminophen (Tylenol) 650 mg Q6H PRN ORAL Mild Pain/Temp > 100.5 01/18/19 00:15 02/15/19 18:14 Atorvastatin Calcium (Lipitor) 20 mg BEDTIME ORAL 01/18/19 21:00 02/17/19 20:59 01/19/19 20:29 Dextrose (Dextrose 50%) 25 ml Q30M PRN IV Hypoglycemia 01/18/19 19:00 02/17/19 18:59 Dextrose (Dextrose 50%) 50 ml Q30M PRN IV Hypoglycemia 01/18/19 19:00 02/17/19 18:59 01/19/19 06:29 Docusate Sodium (Colace) 100 mg THREE TIMES A DAY ORAL 01/18/19 09:00 02/16/19 17:59 01/20/19 08:59 Heparin Sodium (Porcine) (Heparin 5000 units/ml) 5,000 units EVERY 12 HOURS SUBQ 01/18/19 09:00 02/15/19 20:59 01/19/19 20:31 Insulin Aspart (NovoLOG) BEFORE MEALS AND HS SUBQ 01/18/19 06:30 02/16/19 16:29 01/20/19 06:44 Insulin Aspart (NovoLOG) 4 units NOVOTIAC SUBQ 01/19/19 06:30 02/18/19 06:29 01/20/19 06:44 Insulin Detemir (Levemir) 16 units BEDTIME SUBQ 01/19/19 21:00 02/16/19 20:59 01/19/19 20:31 Lisinopril (Zestril) 10 mg BID ORAL 01/18/19 18:00 02/16/19 14:29 01/20/19 09:00 Metoprolol Tartrate (Lopressor) 12.5 mg Q12HR ORAL 01/18/19 09:15 02/17/19 09:14 01/20/19 09:00 Ondansetron HCl (Zofran) 4 mg Q6H PRN IVP Nausea & Vomiting 01/18/19 00:00 02/15/19 17:59 Pantoprazole (Protonix) 40 mg EVERY 12 HOURS ORAL 01/18/19 09:00 02/16/19 20:59 01/20/19 09:00 Potassium Chloride (K-Dur) 40 meq BID ORAL 01/20/19 18:00 02/18/19 09:59 Tramadol HCl (Ultram) 50 mg Q6H PRN ORAL pain 6 and above 01/19/19 12:12 01/26/19 12:11 01/19/19 13:32 Laboratory Tests 01/20/19 06:30: White Blood Count 5.3, Red Blood Count 4.30L, Hemoglobin 13.0L, Hematocrit 38.1L , Mean Corpuscular Volume 89, Mean Corpuscular Hemoglobin 30.2, Mean Corpuscular Hemoglobin Concent 34.1, Red Cell Distribution Width 11.3L, Platelet Count 149L, Mean Platelet Volume 8.7, Neutrophils (%) (Auto) 33.1L, Lymphocytes (%) (Auto) 54.8H, Monocytes (%) (Auto) 7.9, Eosinophils (%) (Auto) 3.0, Basophils (%) (Auto) 1.3, Sodium Level 139, Potassium Level 3.4L, Chloride Level 104, Carbon Dioxide Level 30, Anion Gap 5, Blood Urea Nitrogen 8, Creatinine 0.7, Estimat Glomerular Filtration Rate > 60, Glucose Level 137H, Calcium Level 9.0, Phosphorus Level 3.3, Magnesium Level 1.9, Total Bilirubin 0.5, Aspartate Amino Transf (AST/SGOT) 21, Alanine Aminotransferase (ALT/SGPT) 30, Alkaline Phosphatase 72, Total Protein 6.2L, Albumin 3.0L, Globulin 3.2, Albumin/Globulin Ratio 0.9L Height (Feet): 5 Height (Inches): 7.00 Weight (Pounds): 118 General Appearance: no apparent distress Objective no change Nas Pabon MD Jan 20, 2019 11:53
[2019-01-20 12:00] VITALS: BP 133/94
--- NOTE | 2019-01-20 12:47 | General Progress Note ---
Assessment/Plan Problem List: (1) Uncontrolled hypertension ICD Codes: I10 - Essential (primary) hypertension SNOMED: 62920296, 85997871 (2) DKA (diabetic ketoacidoses) ICD Codes: E11.10 - Type 2 diabetes mellitus with ketoacidosis without coma SNOMED: 340194419, 48158851 (3) Hypokalemia ICD Codes: E87.6 - Hypokalemia SNOMED: 85863673 Status: progressing Assessment/Plan: dka resolved dc if ok w dr live Subjective ROS Limited/Unobtainable: Yes Allergies: Coded Allergies: No Known Allergies (Unverified , 01/16/19) Objective Last 24 Hour Vital Signs Date Time Temp Pulse Resp B/P (MAP) Pulse Ox O2 Delivery O2 Flow Rate FiO2 01/20/19 12:00 98.8 80 18 133/94 (107) 99 01/20/19 09:00 Room Air 01/20/19 09:00 123/77 01/20/19 09:00 81 123/77 01/20/19 08:00 97.9 81 18 123/77 (92) 98 01/20/19 04:00 97.7 78 18 121/81 (94) 98 01/19/19 21:00 Room Air 01/19/19 20:29 87 141/95 01/19/19 20:00 98.2 87 18 141/95 (110) 100 01/19/19 17:26 128/89 01/19/19 16:00 98.0 88 18 128/89 (102) 99 Intake and Output 01/19/19 01/20/19 19:00 07:00 Intake Total 1845 ml Balance 1845 ml Intake Oral 1470 ml IV Total 375 ml # Voids 3 Laboratory Tests 01/20/19 06:30: White Blood Count 5.3, Red Blood Count 4.30L, Hemoglobin 13.0L, Hematocrit 38.1L , Mean Corpuscular Volume 89, Mean Corpuscular Hemoglobin 30.2, Mean Corpuscular Hemoglobin Concent 34.1, Red Cell Distribution Width 11.3L, Platelet Count 149L, Mean Platelet Volume 8.7, Neutrophils (%) (Auto) 33.1L, Lymphocytes (%) (Auto) 54.8H, Monocytes (%) (Auto) 7.9, Eosinophils (%) (Auto) 3.0, Basophils (%) (Auto) 1.3, Sodium Level 139, Potassium Level 3.4L, Chloride Level 104, Carbon Dioxide Level 30, Anion Gap 5, Blood Urea Nitrogen 8, Creatinine 0.7, Estimat Glomerular Filtration Rate > 60, Glucose Level 137H, Calcium Level 9.0, Phosphorus Level 3.3, Magnesium Level 1.9, Total Bilirubin 0.5, Aspartate Amino Transf (AST/SGOT) 21, Alanine Aminotransferase (ALT/SGPT) 30, Alkaline Phosphatase 72, Total Protein 6.2L, Albumin 3.0L, Globulin 3.2, Albumin/Globulin Ratio 0.9L Height (Feet): 5 Height (Inches): 7.00 Weight (Pounds): 118 Bria Moss MD Jan 20, 2019 12:47
--- NOTE | 2019-01-20 15:16 | NUR ---
NURSE NOTES: Patient discharged around 1510, left the floor accompanied by RN to the taxi waiting for patient. Patient's IV and name tag removed upon discharge. Printed package and patient teaching given upon discharge. Family notified of patient's discharge. Patient was stable upon discharge. Belonging list sign by patient and discharging nurse. For follow up with Photo Mask Processor, MD Karina MD's office number given to patient. Patient was stable upon discharge.
[2019-01-20] MEDS ORDERED: Tubing IV Secondary IV ONE (15:20)
--- NOTE | 2019-01-21 09:38 | NUR ---
CASE MANAGEMENT: CM review and clinical information (face sheet/ ER MD notes/ H&P/ -08 progress notes) faxed to [facility] @ [phone]. T#[id number].
--- NOTE | 2019-01-23 09:03 | Discharge Summary ---
Discharge Summary Discharge Summary _ DATE OF ADMISSION: 01/16/2019 DATE OF DISCHARGE: 01/20/2019 DISCHARGED BY: Dr Moss REASON FOR ADMISSION: 28 years old male with past medical history of hypertension, diabetes mellitus, hypercholesteremia, presented with complaint of nausea, vomiting , and abdominal pain. Patient denied recent illness. Patient denied fever and chills. Patient reported compliance with insulin. Upon evaluation patient was tachycardic and tachypneic Pulse oximetry was stable on room air. No fevers. Laboratory work-up revealed no leukocytosis, stable hemoglobin and hematocrit. Urinalysis revealed +4 glucose, +4 ketones. Anion gap 28. CO2 11. Glucose 555. Stable LFT. Acetone level positive. EKG revealed sinus tachycardia, no acute ischemic changes. Patient started on insulin drip as per protocol and aggressive IV fluid resuscitation. Patient subsequently admitted to intensive care unit for management of diabetic ketoacidosis. CONSULTANTS: harvesting supervisor Dr. Haile pulmonary Dr. Bhatt ID specialist Dr. Ronald Mckeon manager human resources Dr. Pabon supervisor speech Dr. Collins [facility] COURSE: Patient was admitted to ICU. Patient was on insulin drip as per protocol until anion gap closed. Patient was provided with aggressive fluid resuscitation. Parts Assembler closely followed. Electrolytes were closely monitored and repleted as needed. When anion gap closed, insulin drip was stopped. Patient started on long-acting Levemir and short acting NovoLog pre-meals. Sliding scale of insulin was implemented as well as needed. Hemoglobin A1c- 12.3, clearly not at goal. Patient was educated on diabetic diet. Diabetic teaching provided. Patient was counseled on compliance with anti-glycemic regimen and diabetic diet. Geodetic Computator closely followed. Potassium magnesium and phosphorus were replaced. Urine toxicology screen was negative. Prior to discharge electrolytes stable. IV fluids discontinued. Renal parameters remained stable. TSH within normal limits. Nps followed. Patient initially exhibited sinus tachycardia. With IV hydration sinus tachycardia resolved. Blood pressure initially was uncontrolled. Patient was continued on DORETHA inhibitor and started on low-dose of beta- alexis. Blood pressure stabilized. B Lipid panel revealed elevated LDL of 118 and low HDL of 29. Patient started on low-dose of statin and educated on low-fat low-cholesterol diet. Infectious disease specialist followed. Per ID specialist, patient exhibited systemic inflammatory response syndrome, likely noninfectious in origin, secondary to diabetic ketoacidosis. There was no need for antibiotic at this time. GI prophylaxis provided. Symptomatic care provided. Patient clinically stabilized and was ready for discharge home. Reinforced compliance with medication and diet. FINAL DIAGNOSES: Diabetic ketoacidosis Diabetes mellitus type 1 Uncontrolled hypertension Electrolyte imbalance( hypokalemia, hypomagnesemia, hypophosphatemia) Sinus tachycardia -resolved Hyperlipidemia DISCHARGE MEDICATIONS: See Medication Reconciliation list. DISCHARGE INSTRUCTIONS: Patient was discharged home. Follow up with primary care provider in one week. I have been assigned to dictate discharge summary for this account. I was not involved in the patient's management. Pilar Gama NP Jan 23, 2019 09:03
== END 2019-01-20 15:21 | disposition home or self-care (01) | DRG 420 ==
LOC: EDBD 10:49 → EMR 12:00 → ICU 14:53 → EDBEDREQ 16:32 → 4E 01-17 22:42
DX: E10.10 Type 1 diabetes mellitus with ketoacidosis without coma (principal); E83.39 Other disorders of phosphorus metabolism; E78.5 Hyperlipidemia, unspecified; I10 Essential (primary) hypertension; Z79.4 Long term (current) use of insulin; E87.6 Hypokalemia; E83.42 Hypomagnesemia; R00.0 Tachycardia, unspecified
CPT/HCPCS: 36415; 71045; 80048; 80053; 80061; 80307; 81001; 81003; 82009; 82550; 82962; 82977; 83036; 83690; 83735; 84100; 84443; 84550; 85025; 86140; 87081; 93005; 96361; 96374; 99291; J1815; J2405; J8499; S5561